=== PATIENT | male | born 1980 | race Caucasian/White ===

== ENCOUNTER → 2018-06-10 08:58 | Outpatient (CLI) | payer OTHER, SELFPAY ==
[2018-06-10 10:12] LABS: Anion Gap 7 (5-15); BUN 14 mg/dL (7-18); BUN/Creat Ratio 12.4 RATIO (10-20); Calcium,Total 8.8 mg/dL (8.5-10.1); Chloride 106 mmol/L (98-107); Cholesterol 252 mg/dL (200); Creatinine, Serum 1.13 mg/dL (0.70-1.30); EST Glomerular Filtration Rate 77 mL/min (>60); Est Glom Filt Rate - Afr Amer 93 mL/min (>60); Glucose 95 mg/dL (74-106); High Density Lipoprotein 38 mg/dL; Potassium 4.4 mmol/L (3.5-5.1); Sodium Level 144 mmol/L (136-145); Triglycerides 187 mg/dL; Very Low Density Lipoprotein 37 mg/dL (5-40)
== END ==
PROVIDERS: Family Provider Internal Medicine; PCP Internal Medicine; Referring Provider Nurse Practitioner Family; Visit Provider Nurse Practitioner Family
DX: F32.9 Major depressive disorder, single episode, unspecified (principal); E78.5 Hyperlipidemia, unspecified
CPT/HCPCS: 36415; 80048; 80061

== ENCOUNTER 2018-11-13 07:14 | Emergency (ER) | payer OTHER, MEDICAID, SELFPAY ==
[2018-10-15 15:28] VITALS: BMI 28.8
[2018-11-13 07:15] VITALS: BP 143/92; PULSE 77; RESP 16; TEMP 36.2; O2SAT 95; BMI 27.1
--- NOTE | 2018-11-13 07:32 | EKG12_ITS ---
Test Reason : MEDICAL CLEARANCE Blood Pressure : / mmHG Vent. Rate : 071 BPM Atrial Rate : 071 BPM P-R Int : 178 ms QRS Dur : 098 ms QT Int : 372 ms P-R-T Axes : 072 059 046 degrees QTc Int : 404 ms Normal sinus rhythm Normal ECG Confirmed by TIMOTHY LEVI ([id number]), editor news KEILY RICHTER ([id number]) on 11/14/2018 2:23:01 PM Referred By: JIM Confirmed By:TIMOTHY LEVI
--- NOTE | 2018-11-13 07:42 | ED.RN ---
NO OLD EKG
[2018-11-13 08:05] LABS: Absolute Lymphocyte Count 1.41 X10^3/uL (0.83-4.51); Absolute Neutrophil Count 4.1 X10^3/uL (2.0-7.7); Basophil# 0.03 X10^3/uL; Basophil% 0.5 % (0-1); Eosinophil# 0.16 X10^3/uL; Eosinophils% 2.6 % (0-5); Hematocrit 45.1 % (40-54); Hemoglobin 15.7 g/dL (13.0-16.5); Lymphocyte # 1.41 X10^3/ul (4.0); Lymphocyte % 22.9 % (19-41); Mean Corp Hgb Conc 34.8 g/dL (32-36); Mean Corpuscular Hgb 32.5 pg (27.0-32.0); Mean Corpuscular Volume 93.4 fL (80-94); Mean Platelet Vol. 9.3 fl (6.2-12.0); Monocyte# 0.39 X10^3/uL; Monocyte% 6.3 % (0-10); NRBC Flagged by Analyzer 0 % (0-5); Neutrophil # 4.13 X10^3/uL (2.7-7.7); Neutrophil % 67.2 % (47-70); Platelet Count 205 K/mm3 (150-450); RBC Distribution Width CV 11.8 % (11.6-14.6); RBC Distribution Width SD 39.8 fl (35.1-43.9); Red Blood Count 4.83 M/mm3 (4.6-6.2); White Blood Count 6.2 K/mm3 (4.4-11.0)
--- NOTE | 2018-11-13 08:22 | ED.DCSUM_ITS ---
- ER Visit Summary Date of Service: 11/13/18 Chief Complaint: Anxiety and depression History of Present Illness: The patient is a 38 M with a history of anxiety and depression. He reports increasing symptoms for several weeks. He did discontinue his fluoxetine a couple months ago because he said that it was not doing anything. He restarted it about 3 weeks ago. Nothing specific seem to make his symptoms worse. He says his finances are tight. He has obsessive thinking about everything. He cannot focus, reports low energy, decreased sleep. He also has heart palpitations and vertigo. He has a history of these symptoms. He feels reckless and on the edge. He has no specific plan. He says he has a and kids to live for. Nothing happened with them and he has no plans to hurt himself for them, but he does not feel safe at home. Although he has no specific suicidal plan, he does not know what he will do. Physical Examination: Afebrile and vital signs unremarkable. Patient has depressed mood. Head and neck unremarkable. Heart regular. Lungs clear. Skin normal. Test Results: EKG showed sinus rhythm at a rate of 71. Laboratory studies, tox screen, and alcohol pending. Emergency Department Course and Treatment: Patient has severe depression and anxiety symptoms. He is not actively suicidal, but he also says that he does not feel safe and does not know what he will do. He will not tell me that he is safe or not going to hurt himself. He makes poor eye contact. I am concerned for his safety, and will place him in suicide precautions. Will obtain clearance and have a crisis evaluation performed.. CBC, CMP, troponin, TSH, tox screen negative. Alcohol level pending. Patient is stable. Crisis is evaluating the patient for further care. Alcohol negative. Crisis agrees that the patient would benefit from hospitalization. I completed a pink slip. Treatment Plan: As above Disposition: Pending Impression: 1. Suicidal ideation This note was generated with [employer]ation software. It may contain incorrect words, spelling, and punctuation that were not noted in review of the chart prior to signing ED Disposition - Plan for ED Patient: Referrals: Dawson Mayo MD [Primary Care Provider] -
[2018-11-13 08:23] LABS: BUN 12 mg/dL (7-18); BUN/Creat Ratio 10.9 RATIO (10-20); EST Glomerular Filtration Rate 79 mL/min (>60); Est Glom Filt Rate - Afr Amer 96 mL/min (>60); Estimated Creatinine Clearance 99.94 ml/min; Globulin 3.3 g/dL (2.2-4.2); Glucose 100 mg/dL (74-106); Protein, Total 7.3 g/dL (6.4-8.2)
[2018-11-13 08:24] LABS: ALB/GLOB Ratio 1.2 RATIO (0.9-2.4); AST(SGOT) 19 U/L (15-37); Alanine Aminotransfer ALT/SGPT 45 U/L (16-61); Alkaline Phosphatase 90 U/L (45-117); Anion Gap 6 (5-15); Calcium,Total 9.1 mg/dL (8.5-10.1); Chloride 107 mmol/L (98-107); Sodium Level 143 mmol/L (136-145); Thyroid Stim Hormone (TSH) 2.26 uIU/mL (0.358-3.74)
--- NOTE | 2018-11-13 08:49 | ED.RN ---
ESA WITH CRISIS I WILL BE THER IN A LITTLE BIT
[2018-11-13 09:15] LABS: Amphetamine Urine VISTA NEGATIVE (<1000 ng/mL); Barbiturate Urine VISTA NEGATIVE (< 200 ng/mL); Benzodiazepine Urine VISTA NEGATIVE (< 200 ng/mL); Cocaine Urine VISTA NEGATIVE (< 300 ng/mL); Ecstacy Urine VISTA NEGATIVE (< 500 ng/mL); Methadone Urine VISTA NEGATIVE (< 300 ng/mL); PCP Urine VISTA NEGATIVE (< 25 ng/mL); THC Urine VISTA NEGATIVE (< 50 ng/mL); Vista UDS pH Range 7
[2018-11-13 09:27] LABS: Alcohol, Blood (Medical)-Serum < 3.0 mg/dL
[2018-11-13 10:42] VITALS: BP 129/74; PULSE 62; RESP 15; O2SAT 98
--- NOTE | 2018-11-13 11:22 | ED.RN ---
JACKIE WITH CRISIS LEFT THE HOSPITAL AT 1125, WE WILL BE IN TOUCH WITH YOU
--- NOTE | 2018-11-13 11:42 | NURSING ---
[facility] CALLED @ 0831 FOR TRANSPORT. [facility] SAID THEY WOULD BE HERE IN 45 MIN, [facility] IS COMING FROM [place].
[2018-11-13 12:13] VITALS: BP 129/74; PULSE 62; RESP 15; TEMP 36.2; O2SAT 98
[2018-11-13 12:15] VITALS: BP 129/74; PULSE 62; RESP 15; TEMP 36.2; O2SAT 98
== END 2018-11-13 12:38 ==
PROVIDERS: Emergency Provider Emergency Medicine; Family Provider Internal Medicine; PCP Internal Medicine
DX: R45.851 Suicidal ideations (principal); F32.9 Major depressive disorder, single episode, unspecified; F41.9 Anxiety disorder, unspecified; F31.9 Bipolar disorder, unspecified
CPT/HCPCS: 80053; 80307; 80320; 84443; 84484; 85025; 93005; 99283; A4216; G0480

== ENCOUNTER → 2018-12-09 11:37 | Outpatient (CLI) | payer OTHER, MEDICAID, SELFPAY ==
[2018-11-29 07:36] VITALS: BMI 27.1
== END ==
PROVIDERS: Family Provider Internal Medicine; PCP Internal Medicine; Referring Provider Nurse Practitioner Family; Visit Provider Nurse Practitioner Family
DX: G47.10 Hypersomnia, unspecified (principal)
CPT/HCPCS: 95806

== ENCOUNTER → 2019-05-13 15:04 | Outpatient (CLI) | payer MEDICAID, SELFPAY ==
[2019-05-13 13:51] VITALS: BMI 27.1
--- NOTE | 2019-05-13 15:10 | RAD_ITS ---
STUDY: X-RAY - LEFT KNEE REASON FOR EXAM: Male, 39 years old. patient was bending down and twisted and felt a pop in his knee TECHNIQUE: 3 view(s) of the knee. COMPARISON: None. FINDINGS: Normal visualized distal femur. Normal visualized proximal tibia and fibula. Normal proximal tibiofibular articulation. Normal medial femorotibial compartment. Normal lateral femorotibial compartment. Normal patellofemoral articulation. The soft tissue structures are unremarkable. RAD/Knee 3 Views IMPRESSION: Normal x-ray examination of the knee. Electronically Signed: Heraclio William, at 9:19 EST Tel , Service support ,
== END ==
PROVIDERS: PCP Internal Medicine; Referring Provider Internal Medicine; Visit Provider Internal Medicine
DX: M25.562 Pain in left knee (principal)
CPT/HCPCS: 73562

== ENCOUNTER → 2019-08-08 17:35 | Outpatient (CLI) | payer MEDICAID, SELFPAY ==
[2019-06-04 09:36] VITALS: BMI 29.4
--- NOTE | 2019-08-08 17:36 | MRI_ITS ---
HISTORY: Medial LEFT knee pain, meniscal tear EXAMINATION: MR Knee W/O Contrast TECHNIQUE: Multiplanar and multisequence MR images of the left knee. IV Contrast dosage and agent: None. COMPARISON: Left knee x-ray 05/13/2019 FINDINGS: BONE: No fracture, avascular necrosis, or suspicious lesion. Small benign-appearing insertion related cyst of the proximal tibia beneath the ACL insertion. This is not believed significant. JOINT: Small to moderate suprapatellar effusion. No popliteal cyst formation or loose body. MENISCI: Medial and lateral menisci show normal shape and signal intensity. No meniscal tear. Cruciate and collateral ligaments: Intact. Normal signal. CARTILAGE: Intact. No chondromalacia, osteochondral defect, or loose body Tendons: Normal quadriceps and patellar tendons. MRI/Lower Ext Joint Only (Routine) IMPRESSION: 1. Small to moderate suprapatellar effusion, left knee, compatible with nonspecific synovitis. Otherwise negative exam. 2. Intact menisci and ligaments. 3. No chondromalacia or additional significant abnormality. at 050 Reported and signed by: Herman Spencer MD Electronically Signed: Herman Spencer, at 5:08 EDT Tel , Service support ,
== END ==
PROVIDERS: PCP Internal Medicine; Referring Provider Orthopaedic Surgery; Visit Provider Orthopaedic Surgery
DX: S83.242A Other tear of medial meniscus, current injury, left knee, initial encounter (principal)
CPT/HCPCS: 73721

== ENCOUNTER → 2019-12-05 15:24 | Outpatient (CLI) | payer MEDICAID, SELFPAY ==
[2019-12-05 14:53] VITALS: BMI 29.4
[2019-12-05 16:57] LABS: Absolute Neutrophil Count 6.4 X10^3/uL (2.0-7.7); Basophil# 0.04 X10^3/uL; Basophil% 0.5 % (0-1); Eosinophil# 0.23 X10^3/uL; Eosinophils% 2.8 % (0-5); Hematocrit 42.9 % (40-54); Hemoglobin 14.5 g/dL (13.0-16.5); Lymphocyte % 13.3 % (19-41); Mean Corp Hgb Conc 33.8 g/dL (32-36); Mean Corpuscular Hgb 32.2 pg (27.0-32.0); Mean Corpuscular Volume 95.1 fL (80-94); Mean Platelet Vol. 9.8 fl (6.2-12.0); Monocyte# 0.46 X10^3/uL; Monocyte% 5.5 % (0-10); NRBC Flagged by Analyzer 0 % (0-5); Neutrophil # 6.41 X10^3/uL (2.7-7.7); Neutrophil % 77.2 % (47-70); Platelet Count 269 K/mm3 (150-450); RBC Distribution Width CV 12.2 % (11.6-14.6); RBC Distribution Width SD 42.5 fl (35.1-43.9); Red Blood Count 4.51 M/mm3 (4.6-6.2); White Blood Count 8.3 K/mm3 (4.4-11.0)
[2019-12-05 17:39] LABS: ALB/GLOB Ratio 0.9 RATIO (0.9-2.4); AST(SGOT) 34 U/L (15-37); Alanine Aminotransfer ALT/SGPT 72 U/L (16-61); Albumin, Serum 3.5 g/dL (3.2-5.0); Alkaline Phosphatase 129 U/L (45-117); Anion Gap 7 (5-15); BUN 19 mg/dL (7-18); BUN/Creat Ratio 16.4 RATIO (10-20); Calcium,Total 8.5 mg/dL (8.5-10.1); Chloride 104 mmol/L (98-107); Creatinine, Serum 1.16 mg/dL (0.70-1.30); EST Glomerular Filtration Rate 74 mL/min (>60); Est Glom Filt Rate - Afr Amer 90 mL/min (>60); Globulin 3.8 g/dL (2.2-4.2); Glucose 96 mg/dL (74-106); Potassium 3.8 mmol/L (3.5-5.1); Protein, Total 7.3 g/dL (6.4-8.2); Sodium Level 141 mmol/L (136-145)
[2019-12-06 07:05] LABS: SARS-COV-2 TOTAL ABS Nonreactive (Nonreactive)
== END ==
PROVIDERS: PCP Internal Medicine; Visit Provider Internal Medicine
DX: R06.02 Shortness of breath (principal); R53.81 Other malaise; R53.83 Other fatigue
CPT/HCPCS: 36415; 80053; 85025; 86769

== ENCOUNTER → 2019-12-10 08:45 | Outpatient (CLI) | payer OTHER, MEDICAID, SELFPAY ==
[2019-12-05 14:53] VITALS: BMI 29.4
--- NOTE | 2019-12-10 08:47 | EKG12_ITS ---
Test Reason : ROUTINE Blood Pressure : / mmHG Vent. Rate : 080 BPM Atrial Rate : 080 BPM P-R Int : 144 ms QRS Dur : 096 ms QT Int : 360 ms P-R-T Axes : 051 065 040 degrees QTc Int : 415 ms Normal sinus rhythm with sinus arrhythmia Normal ECG Confirmed by DARIO FONG, CHERYL ([id number]), senior technical editor KEILY RICHTER ([id number]) on 12/12/2019 1:29:33 PM Referred By: Dawson Mayo Confirmed By:PATRICK BISHOP MD
--- NOTE | 2019-12-10 08:49 | RAD_ITS ---
STUDY: X-RAY CHEST REASON FOR EXAM: Male, 39 years old. SOB x 3 weeks, pt c/o low pulse TECHNIQUE: PA and lateral views of the chest. COMPARISON: None. FINDINGS: The lungs are clear and expanded. There is no demonstrated pleural abnormality. Normal size heart. Normal mediastinum and allegra. Normal visualized pulmonary arteries. Normal visualized aortic arch and descending thoracic aorta. Normal visualized thoracic spine. Normal visualized ribs, clavicles, and shoulders. There is no demonstrated abnormality of the visualized soft tissue structures of the upper abdomen. RAD/Chest PA and Lateral IMPRESSION: Normal x-ray examination of the chest. Electronically Signed: Justo Brooks, at 15:26 EDT , Service support ,
== END ==
PROVIDERS: PCP Internal Medicine; Referring Provider Internal Medicine; Visit Provider Internal Medicine
DX: R06.02 Shortness of breath (principal)
CPT/HCPCS: 71046; 93005

== ENCOUNTER 2020-01-10 11:40 | Observation (INO) | payer MEDICAID, SELFPAY ==
[2019-12-28 10:02] VITALS: BMI 29.4
[2020-01-10] VITALS (13 sets, daily range): BP systolic 108–145; BP diastolic 64–74; PULSE 71–92; RESP 18–30; TEMP 35.9–37.3; O2SAT 89–98; BMI 28.5; BMI 28.3
--- NOTE | 2020-01-10 12:14 | RAD_ITS ---
STUDY: X-RAY CHEST REASON FOR EXAM: Male, 39 years old. SOB SINCE OCTOBER. GETTING WORSE. TECHNIQUE: Frontal view of the chest COMPARISON: 10 December 2019 FINDINGS: There are new bilateral basilar ill-defined opacities, right greater than left. Inspiratory volumes are low. There is no pneumothorax, pulmonary edema, cardiomegaly or pleural effusions. Skeleton is intact. One month ago the lungs were normal. RAD/Chest 1 View (Portable) IMPRESSION: Right lower lobe opacity, possible left lower lobe opacity. In the acute setting pneumonia is most probable given the lungs were normal one month ago. Electronically Signed: Heraclio William, at 13:44 EDT Tel , Service support ,
--- NOTE | 2020-01-10 12:14 | EKG12_ITS ---
Test Reason : Blood Pressure : / mmHG Vent. Rate : 088 BPM Atrial Rate : 088 BPM P-R Int : 160 ms QRS Dur : 092 ms QT Int : 356 ms P-R-T Axes : 038 072 048 degrees QTc Int : 430 ms Normal sinus rhythm Normal ECG Confirmed by WU FONG, ALLISON ([id number]), dictionary editor ATUL BRITT ([id number]) on 01/13/2020 12:34:45 PM Referred By: RAIZA Confirmed By:ALLISON WASHBURN MD
--- NOTE | 2020-01-10 12:17 | ED.VISSUMM ---
- ER Visit Summary Date of Service: 01/10/20 Chief Complaint: [Shortness of breath] History of Present Illness: The patient is a 39 M [presents to the emergency department complaint of shortness of breath that has been progressive for the last 2 months. Patient states that he has been seen by his primary care physician and in December he had antibody testing for COVID which was negative. He is never had COVID testing otherwise. Patient has minimal cough that is nonproductive. He describes intermittent chest discomfort that is mild. He complains of exertional dyspnea. He denies recent travel or surgery. No history of PE or DVT. Patient has history of slightly elevated cholesterol but no other significant medical history. Patient states that he has been to urgent care for this and no etiology has been found. Patient states that his pulse ox at times had dropped to as low as 92%. On arrival to our emergency department he was down to 87% on room air.] Physical Examination: [HEENT-PERRLA, EOMI. Cranial nerves II through XII grossly intact. TMs clear. Mucous membranes moist. No adenopathy. Cardiovascular-regular rate and rhythm without murmur or ectopy Lungs-good aeration bilaterally. Patient has some occasional coarse rhonchi noted and faint expiratory wheezes. No accessory muscle use or retractions. No conversational dyspnea. Abdomen-normoactive bowel sounds, soft, nontender, no rebound or rigidity, no peritoneal signs. Extremities-intact ?4, normal range of motion, normal pulses, atraumatic. No leg edema noted. Negative Homans sign. No ropes or cords palpated.] Test Results: [EKG obtained on arrival showed a sinus rhythm with a ventricular rate of 88 bpm. CBC with external count 11.3, hemoglobin 14.9, hematocrit 45, placed 217. Chemistries unremarkable. Troponin less than 0.015. BNP was 8.7. D-dimer was 0.35. Chest x-ray obtained showed a right lower lobe opacity. CTA of the chest was technically difficult but no evidence of central PE noted. Patient was noted to have bilateral groundglass opacities consistent with a pneumonitis and it was recommended patient have pulmonology consultation.] COVID-19 test ordered and pending Emergency Department Course and Treatment: [IV line established on arrival. Blood cultures ordered. Patient was started on Levaquin 750 mg IV. Patient was started on 2 L nasal cannula O2 for his hypoxemia with room O2 of 87% on room air.] Treatment Plan: [Admit] Disposition: [Admit] Impression: [Pneumonia Hypoxemia] This note was generated with [email or web address] dictation software. It may contain incorrect words, spelling, and punctuation that were not noted in review of the chart prior to signing ED Disposition - Plan for ED Patient: Referrals: Dawson Mayo MD [Primary Care Provider] -
[2020-01-10] MEDS: 0.9% Normal Saline 1,000 ML 150 ML IV (12:42)
[2020-01-10 12:59] LABS: Absolute Lymphocyte Count 0.82 X10^3/uL (0.83-4.51); Absolute Neutrophil Count 9.8 X10^3/uL (2.0-7.7); Basophil# 0.03 X10^3/uL; Basophil% 0.3 % (0-1); Eosinophils% 0.9 % (0-5); Hematocrit 45.3 % (40-54); Hemoglobin 14.9 g/dL (13.0-16.5); Lymphocyte # 0.82 X10^3/ul (4.0); Lymphocyte % 7.3 % (19-41); Mean Corp Hgb Conc 32.9 g/dL (32-36); Mean Corpuscular Hgb 31.8 pg (27.0-32.0); Mean Corpuscular Volume 96.6 fL (80-94); Mean Platelet Vol. 9.5 fl (6.2-12.0); Monocyte# 0.48 X10^3/uL; Monocyte% 4.3 % (0-10); NRBC Flagged by Analyzer 0 % (0-5); Neutrophil # 9.81 X10^3/uL (2.7-7.7); Neutrophil % 86.8 % (47-70); Platelet Count 217 K/mm3 (150-450); RBC Distribution Width CV 12.8 % (11.6-14.6); RBC Distribution Width SD 45.1 fl (35.1-43.9); Red Blood Count 4.69 M/mm3 (4.6-6.2); White Blood Count 11.3 K/mm3 (4.4-11.0)
[2020-01-10 13:15] LABS: D-Dimer Quantitative (DVT/PE) 0.35 FEU/ug/m (0.27-0.49)
[2020-01-10 13:16] LABS: Anion Gap 3 (5-15); BUN 15 mg/dL (7-18); BUN/Creat Ratio 12.1 RATIO (10-20); Calcium,Total 9.5 mg/dL (8.5-10.1); Chloride 107 mmol/L (98-107); Creatinine, Serum 1.24 mg/dL (0.70-1.30); EST Glomerular Filtration Rate 69 mL/min (>60); Est Glom Filt Rate - Afr Amer 83 mL/min (>60); Estimated Creatinine Clearance 87.79 ml/min; Glucose 100 mg/dL (74-106); Potassium 4.4 mmol/L (3.5-5.1); Sodium Level 139 mmol/L (136-145)
[2020-01-10 13:21] LABS: BNP,B-Type NATRIURETIC PEPTIDE 8.7 pg/mL (0-100)
[2020-01-10 13:22] LABS: Lactic Acid 0.6 mmol/L (0.4-1.9)
--- NOTE | 2020-01-10 13:24 | CT_ITS ---
STUDY: CTA CHEST REASON FOR EXAM: Male, 39 years old. Hypoxia and dyspnea shortness of breath RADIATION DOSAGE (If Supplied By Facility): CTDIvol = ( 18.33 ) mGy, DLP = ( 474.13 ) mGycm TECHNIQUE: The examination was performed with the intravenous administration of IV 100mL Isovue-370. Post-processing of the angiographic images was performed, with multiplanar reformation and 3D reconstruction. Individualized dose optimization techniques were used for this CT. COMPARISON: None. FINDINGS: Examination is technically suboptimal, in part due to motion artifact. Attenuation the pulmonary artery is suboptimally low, making visualization of lobar and segmental branches difficult. Some diagnostic information is available. Assessment of parenchyma is suboptimal. Diagnostic information is available. There is no large or central pulmonary embolism. There is no pulmonary arterial hypertension or right ventricular strain. Cardiac chambers are normal in size and shape. Aorta is normal. Pericardium is normal. There is diffuse bilateral pulmonary disease with predominantly groundglass micronodular appearance in the upper to midlung zones and more lobar groundglass opacities in the lung bases. Central airways are patent. Pleural surfaces are intact. Mediastinal contents are normal. CT/CTA Chest W/WO Contrast IMPRESSION: 1. Technical limitations exam. 2. No large/central pulmonary embolism. Refer to ultrasonography of the lower extremity venous system for further risk stratification of a patient at risk for venous thrombi embolic disease. 3. Diffuse lung disease. Hypersensitivity pneumonitis is most probable. Pulmonary referral is advised. Further imaging will depend on pulmonate consultation results. Electronically Signed: Heraclio William, at 15:13 EDT Tel , Service support ,
[2020-01-10] MEDS: levoFLOXacin IV 750 MG/150 ML BAG 100 MG IV (15:09)
[2020-01-10] MEDS: Acetaminophen 325 MG Tablet 650 MG PO (16:27)
--- NOTE | 2020-01-10 16:56 | PCM.HP.STD ---
Problem List (1) Overweight (BMI 25.0-29.9) Status: Chronic (2) ROSE MARIE (obstructive sleep apnea) Status: Chronic Comment: AHI 24 (3) Depression Status: Chronic (4) History of vasectomy Status: Chronic Comment: 10/17 (5) Daytime somnolence Status: Chronic (6) Bipolar disorder Status: Chronic (7) Vertigo Status: Resolved (8) Bloody ejaculation Status: Resolved (9) Hx of appendicitis Status: Resolved History of Present Illness Date of Admission: 01/10/20 Chief Complaint: Shortness of breath. The patient is a 39 year old M who presents to the emergency due to shortness of breath. Shortness of breath has been ongoing since the beginning of October. Patient reports he has been following with his primary care provider and had a chest x-ray, EKG and COVID antibody test in the beginning of December, all of which was unremarkable. Patient reports mild cough associated with deep breathing. Denies productive cough. Denies fever. Reports mild chills this morning. Denies nausea, vomiting. States shortness of breath is worse with activity. Denies history of asthma. No smoking history. 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 He has a history of obstructive sleep apnea, depression/anxiety/bipolar. Past Medical History Past Medical History (Chronic Problems): Chronic Problems (Last Updated 12/28/19 @ 10:01 by Dionne Saeed) Overweight (BMI 25.0-29.9) (Chronic) ROSE MARIE (obstructive sleep apnea) (Chronic) AHI 24 Depression (Chronic) History of vasectomy (Chronic) 10/17 Daytime somnolence (Chronic) Bipolar disorder (Chronic) Medical History: Medical History (Last Updated 12/28/19 @ 10:01 by Dionne Saeed) Depression (Chronic) F32.9 Daytime somnolence (Chronic) R40.0 Bipolar disorder (Chronic) F31.9 Vertigo (Acute) R42 Depression (Chronic) F32.9 Bloody ejaculation (Chronic) R36.1 Hx of appendicitis (Chronic) Z87.19 Knee pain M25.569 Anxiety F41.9 Hyperlipidemia E78.5 Allergies No Known Allergies Allergy (Verified 01/10/20 11:41) Home Medications: Ambulatory Orders Medication Instructions Recorded fluoxetine 60 mg tablet 60 mg PO DAILY #90 tab 09/04/20 gabapentin 400 mg capsule 400 mg PO TID PRN 12/05/19 albuterol sulfate 90 mcg/actuation 1 - 2 puff INHALATION Q6H PRN #6.7 12/28/19 aerosol inhaler g Surgical History: Surgical History (Last Reviewed 01/10/20 @ 17:03 by Evy Jones NP, SIDE PANEL PADDER-C) History of vasectomy (Resolved) Z98.52 7/ History of appendectomy Z90.49 Surgical History: - - Appendectomy, vasectomy, right knee surgery Psychiatric History: Anxiety, Bipolar, Depression Lives: Spouse/ Significant Other Smoking Status: Never smoker Alcohol: None Drugs: None - *Family History Maternal Family History: Family History (Last Reviewed 01/10/20 @ 17:05 by Evy Jones NP, SIDE PANEL PADDER-C) Mother Hypertension Hyperlipidemia Anxiety Father Diabetes ROSE MARIE (obstructive sleep apnea) Sister Hyperlipidemia Grandmother Heart disease Myocardial infarction Grandfather Heart disease Myocardial infarction History Items: High Cholesterol, Hypertension, - - Anxiety Paternal Family History: Family History (Last Reviewed 01/10/20 @ 17:05 by Evy Jones NP, SIDE PANEL PADDER-C) Mother Hypertension Hyperlipidemia Anxiety Father Diabetes ROSE MARIE (obstructive sleep apnea) Sister Hyperlipidemia Grandmother Heart disease Myocardial infarction Grandfather Heart disease Myocardial infarction History Items: Diabetes, - - ROSE MARIE Review of Systems Constitutional: Reports: Chills, Malaise. Denies: Fever HEENT: Denies: Head Aches, Sinus Congestion, Sinus Drainage Cardiovascular: Denies: Chest Pain, Edema, Light Headedness, Palpitations, Syncope Respiratory: Reports: Cough, Shortness of Breath. Denies: Sputum production Gastrointestinal: Denies: Abdominal Pain, Nausea, Vomiting Genitourinary: Denies: Dysuria Musculoskeletal: Denies: Joint Pain, Joint Tenderness Skin: Denies: Rash, Wounds Neurological: Denies: Numbness, Tingling, Focal weakness Psychiatric: Reports: Anxiety, Depression Hematologic/ Lymphatic: Denies: Easy Bruising, Easy Bleeding VTE Information - Inpt Only VTE Present on Admission: No VTE Mechan Device Prophylaxis: None VTE Pharm Prophylaxis ordered?: No Reason prophylaxis not ordered:: Treatment Not Indicated - Physical Exam Vitals/I&O's: Vital Signs Temp Pulse Resp BP Pulse Ox 99.1 F 88 26 H 138/73 H 92 01/10/20 15:15 01/10/20 15:15 01/10/20 15:15 01/10/20 15:15 01/10/20 15:15 Oxygen Flow Rate (L/min) 2 Oxygen Delivery Method Nasal Cannula Weight: 210 lb Body Mass Index (BMI) 28.5 Intake and Output for Last 24 Hours 01/08/20 01/09/20 01/10/20 23:59 23:59 23:59 Intake Total 517.5 / 517.5 Balance 517.5 / 517.5 General: Alert, Oriented x3, Cooperative HEENT: Atraumatic, PERRLA, EOMI, Normocephalic Oral: - - Conjunctival injection bilaterally, patient reports chronic Neck: Supple, No JVD, Negative Carotid Bruits Lungs: Diminished, - - Scattered crackles Cardiovascular: Regular rate, No murmurs Abdomen: Bowel Sounds Present, Soft, Non Tender Extremities: No clubbing, No cyanosis, No edema, Capillary Refill Less than 3 Seconds Skin: No rashes, No breakdown Musculoskeletal: No Tenderness to Palpation of Joints or Extremities Neurological: Cranial nerves II-XII grossly intact, Neuro grossly intact Psych/Mental Status: Normal Affect, Appropriate Laboratory Results 01/10/20 12:30: WBC 11.3 H, RBC 4.69, Hgb 14.9, Hct 45.3, MCV 96.6 H, MCH 31.8, MCHC 32.9, RDW Std Deviation 45.1 H, RDW Coeff of Deepti 12.8, Plt Count 217, MPV 9.5, Immature Gran % (Auto) 0.400, Neut % (Auto) 86.8 H, Lymph % (Auto) 7.3 L, Harnett % (Auto) 4.3, Eos % (Auto) 0.9, Baso % (Auto) 0.3, Absolute Neuts (auto) 9.8 H, Absolute Lymphs (auto) 0.82 L, Nucleated RBC % 0 01/10/20 12:30: D-Dimer Quant (PE/DVT) 0.35 01/10/20 12:30: Sodium 139, Potassium 4.4, Chloride 107, Carbon Dioxide 29.0, Anion Gap 3 L, BUN 15, Creatinine 1.24, Estim Creat Clear Calc 87.79, Est GFR (MDRD) Af Amer 83, Est GFR (MDRD) Non-Af 69, BUN/Creatinine Ratio 12.1, Glucose 100, Calcium 9.5, Troponin I < 0.015 01/10/20 12:30: Lactic Acid 0.6 01/10/20 12:30: B-Natriuretic Peptide 8.7 01/10/20 13:30: COVID-19 (VICKEY) Pending Current Medications Sodium Chloride () 1,000 mls @ 150 mls/hr IV .Q6H40M ONE Stop: 01/10/20 18:53 Last Infusion: 01/10/20 16:24 Dose: 150 mls/hr Documented by: Assessment/Plan All Active Problems (Last Updated 12/28/19 @ 10:01 by Dionne Saeed) Bloody ejaculation (Resolved) Hx of appendicitis (Resolved) Vertigo (Resolved) 1. Acute hypoxia secondary to right lower lobe pneumonia and pneumonitis-unclear etiology of pneumonitis. COVID negative. Obtain respiratory panel. CT of chest negative for PE. Shows diffuse lung disease with hypersensitivity pneumonitis. Consult pulmonary medicine. Continue supplement oxygen to maintain O2 at or above 90%. IV Solu-Medrol. Albuterol DuoNeb aerosols. Continue Levaquin. 2. ROSE MARIE- on CPAP. 3. Depression/anxiety/bipolar-on fluoxetine and as needed gabapentin. DVT prophylaxis-not indicated, low risk This patient was seen by CHELSEA Calderon under the supervision of Dr. Gonzalez.
[2020-01-10 17:03] LABS: Probe Check PASS; Specimen Processing Control PASS
[2020-01-10] MEDS: Albuterol 2.5 MG/3 ML VIAL.NEB. INHALATION (19:31)
[2020-01-10] MEDS: 0.9% Saline Lock 10 ML Syringe IV (21:42)
[2020-01-11] VITALS (9 sets, daily range): BP systolic 120–130; BP diastolic 67–72; PULSE 71–90; RESP 18–20; TEMP 36.6–37.1; O2SAT 85–95
[2020-01-11] MEDS: levoFLOXacin 750 MG Tablet PO (05:35)
[2020-01-11] MEDS: 0.9% Saline Lock 10 ML Syringe IV (05:35)
--- NOTE | 2020-01-11 05:55 | RAD_ITS ---
STUDY: X-RAY CHEST REASON FOR EXAM: Male, 39 years old. PNEUMONIA TECHNIQUE: PA and lateral views of the chest. COMPARISON: 01/10/2020 FINDINGS: Persistent but decreased asymmetric reticulation in the right lower lobe and right middle lobe, since chest x-ray yesterday. There is no demonstrated pleural abnormality. Normal size heart. Normal mediastinum and allegra. Normal visualized pulmonary arteries. Normal visualized aortic arch and descending thoracic aorta. Normal visualized thoracic spine. Normal visualized ribs, clavicles, and shoulders. There is no demonstrated abnormality of the visualized soft tissue structures of the upper abdomen. RAD/Chest PA and Lateral IMPRESSION: Mild favorable change. Decreasing right basilar reticular opacity. Electronically Signed: Erickson Flores MD (Brooks) at 15:02 EDT , Service support ,
[2020-01-11] MEDS: Albuterol 2.5 MG/3 ML VIAL.NEB. INHALATION (07:00)
--- NOTE | 2020-01-11 07:22 | CON.PCM_ITS ---
Reason for Consult Date of Consultation: 01/11/20 Reason for Consultation: Hypoxia, pneumonitis History of Present Illness: The patient is a 39-year-old male, with a history as outlined below, who presented to the emergency department on January 09 with complaints of shortness of breath, progressive in nature over the last 2 months. The patient reported that in October he began to notice that he was becoming more short of breath with physical exertion. The patient is a lifelong non-smoker without significant secondhand smoke exposure. 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 The patient denies any significant occupational/environmental exposures. He denies any upper respiratory symptoms including rhinorrhea, nasal congestion or postnasal drip. He does currently have 1 dog as a pet in his home environment. He denies any recent bird exposures. The patient was in a hot tub back in October on one occasion. He denies any joint or muscle aches. He has been tested for coronavirus on several occasions now and also had antibody testing completed in December which was negative. He denies any recent medication changes. On presentation to the emergency department, the patient was noted to be afebrile and hemodynamically stable. He was initially documented to be saturating 89 to 90% on room air. Laboratory evaluation revealed a mildly elevated white blood cell count. D-dimer was within normal limits. Chemistry profile was unremarkable. Troponin and BNP were negative. Coronavirus PCR was negative. CTA chest was obtained and showed no evidence for PE. However, there was evidence of bilateral groundglass changes. The patient received supplemental IV fluids and was placed on antimicrobials. He was subsequently admitted to the medical surgical floor for further management. The patient has been maintained on Levaquin by mouth along with IV steroids 40 mg every 8 hours. Past Medical History Past Medical History (Chronic Problems): Chronic Problems (Last Updated 12/28/19 @ 10:01 by Dionne Saeed) Overweight (BMI 25.0-29.9) (Chronic) ROSE MARIE (obstructive sleep apnea) (Chronic) AHI 24 Depression (Chronic) History of vasectomy (Chronic) 10/17 Daytime somnolence (Chronic) Bipolar disorder (Chronic) Medical History: Medical History (Last Updated 12/28/19 @ 10:01 by Dionne Saeed) Depression (Chronic) F32.9 Daytime somnolence (Chronic) R40.0 Bipolar disorder (Chronic) F31.9 Knee pain M25.569 Anxiety F41.9 Hyperlipidemia E78.5 Bloody ejaculation (Resolved) R36.1 Hx of appendicitis (Resolved) Z87.19 Vertigo (Resolved) R42 Allergies No Known Allergies Allergy (Verified 01/10/20 11:41) Home Medications: Ambulatory Orders Medication Instructions Recorded fluoxetine 60 mg tablet 60 mg PO DAILY #90 tab 12/05/19 gabapentin 400 mg capsule 400 mg PO TID PRN 12/05/19 albuterol sulfate 90 mcg/actuation 1 - 2 puff INHALATION Q6H PRN #6.7 12/28/19 aerosol inhaler g Surgical History: Surgical History (Last Reviewed 01/10/20 @ 17:03 by Evy Jones [employer]ING WORKER, [employer]ING WORKER-C) History of vasectomy (Chronic) Z98.52 7/ History of appendectomy Z90.49 Surgical History: - - Appendectomy, vasectomy, right knee surgery Psychiatric History: Anxiety, Bipolar, Depression Lives: Spouse/ Significant Other Smoking Status: Never smoker Alcohol: None Drugs: None - *Family History Maternal Family History: Family History (Last Reviewed 01/10/20 @ 17:05 by Evy Jones NP, [employer]-C) Mother Hypertension Hyperlipidemia Anxiety Father Diabetes ROSE MARIE (obstructive sleep apnea) Sister Hyperlipidemia Grandmother Heart disease Myocardial infarction Grandfather Heart disease Myocardial infarction History Items: High Cholesterol, Hypertension, - - Anxiety Paternal Family History: Family History (Last Reviewed 01/10/20 @ 17:05 by Evy Jones NP, [employer] WORKER-C) Mother Hypertension Hyperlipidemia Anxiety Father Diabetes ROSE MARIE (obstructive sleep apnea) Sister Hyperlipidemia Grandmother Heart disease Myocardial infarction Grandfather Heart disease Myocardial infarction History Items: Diabetes, - - ROSE MARIE Review of Systems Constitutional: Reports: Malaise, Fatigue. Denies: Chills, Fever Eyes: Denies: Blurred vision, Double vision HEENT: Denies: Head Aches, Sinus Congestion, Sinus Drainage Cardiovascular: Denies: Chest Pain, Palpitations Respiratory: Reports: Cough, Shortness of Breath Gastrointestinal: Denies: Abdominal Pain, Nausea, Vomiting Genitourinary: Denies: Dysuria Musculoskeletal: Denies: Joint Pain, Joint Tenderness Skin: Denies: Rash, Wounds Neurological: Denies: Numbness, Tingling, Focal weakness Psychiatric: Denies: Anxiety, Depression, Homicidal Ideations, Suicidal Ideations Hematologic/ Lymphatic: Denies: Easy Bruising, Easy Bleeding Objective: The patient's most recent lab work, culture data and imaging studies have all been personally reviewed. - Physical Exam Vitals/I&O's: Vital Signs Temp Pulse Resp BP Pulse Ox 98 F 71 20 H 123/67 H 91 01/11/20 05:33 01/11/20 07:17 01/11/20 07:17 01/11/20 05:33 01/11/20 07:17 Oxygen Flow Rate (L/min) 2 Oxygen Delivery Method Nasal Cannula Weight: 208 lb 12.8 oz Body Mass Index (BMI) 28.3 Intake and Output for Last 24 Hours 01/09/20 01/10/20 01/11/20 23:59 23:59 23:59 Intake Total 892.5 / 1392.5 1100 / 1100 Balance 892.5 / 1392.5 1100 / 1100 General: Alert, Oriented x3, Cooperative, No apparent distress HEENT: Atraumatic, PERRLA, Normocephalic Oral: Moist Mucosa, No Gingival or Mucosal Lesions/ Ulcerations Neck: Supple, No Nodes, Trachea Midline Lungs: - - Faint bibasilar rales. Otherwise clear to auscultation bilaterally. Cardiovascular: Regular rate, Regular Rhythm Abdomen: Bowel Sounds Present, Soft, Non Tender Extremities: No clubbing, No cyanosis, No edema Skin: No breakdown Musculoskeletal: No Tenderness to Palpation of Joints or Extremities, No Muscle Wasting Lymphatic: No Cervical, Supraclavicular, or Inguinal Adenopathy Neurological: Cranial nerves II-XII grossly intact, Neuro grossly intact Psych/Mental Status: Alert and oriented to time, place, person, mood and affect Labs (Last 48 Hours) 01/10/20 01/10/20 01/10/20 12:30 12:30 12:30 WBC 11.3 H RBC 4.69 Hgb 14.9 Hct 45.3 MCV 96.6 H MCH 31.8 MCHC 32.9 RDW Std Deviation 45.1 H RDW Coeff of Deepti 12.8 Plt Count 217 MPV 9.5 Immature Gran % (Auto) 0.400 Neut % (Auto) 86.8 H Lymph % (Auto) 7.3 L Amite % (Auto) 4.3 Eos % (Auto) 0.9 Baso % (Auto) 0.3 Absolute Neuts (auto) 9.8 H Absolute Lymphs (auto) 0.82 L Nucleated RBC % 0 D-Dimer Quant (PE/DVT) 0.35 Sodium 139 Potassium 4.4 Chloride 107 Carbon Dioxide 29.0 Anion Gap 3 L BUN 15 Creatinine 1.24 Estim Creat Clear Calc 87.79 Est GFR (MDRD) Af Amer 83 Est GFR (MDRD) Non-Af 69 BUN/Creatinine Ratio 12.1 Glucose 100 Lactic Acid Calcium 9.5 Troponin I < 0.015 B-Natriuretic Peptide COVID-19 (VICKEY) 01/10/20 01/10/20 01/10/20 12:30 12:30 13:30 WBC RBC Hgb Hct MCV MCH MCHC RDW Std Deviation RDW Coeff of Deepti Plt Count MPV Immature Gran % (Auto) Neut % (Auto) Lymph % (Auto) Amite % (Auto) Eos % (Auto) Baso % (Auto) Absolute Neuts (auto) Absolute Lymphs (auto) Nucleated RBC % D-Dimer Quant (PE/DVT) Sodium Potassium Chloride Carbon Dioxide Anion Gap BUN Creatinine Estim Creat Clear Calc Est GFR (MDRD) Af Amer Est GFR (MDRD) Non-Af BUN/Creatinine Ratio Glucose Lactic Acid 0.6 Calcium Troponin I B-Natriuretic Peptide 8.7 COVID-19 (VICKEY) Not Detected Microbiology 01/10/20 19:30 Mucosa - Nasopharyngeal Respiratory Panel (PCR) - Final Clinical Impression(s) from Imaging Studies Chest X-Ray 01/10/20 12:14 IMPRESSION: Right lower lobe opacity, possible left lower lobe opacity. In the acute setting pneumonia is most probable given the lungs were normal one month ago. Electronically Signed: Heraclio William, at 13:44 EDT Tel , Service support , Chest CTA 01/10/20 13:24 IMPRESSION: 1. Technical limitations exam. 2. No large/central pulmonary embolism. Refer to ultrasonography of the lower extremity venous system for further risk stratification of a patient at risk for venous thrombi embolic disease. 3. Diffuse lung disease. Hypersensitivity pneumonitis is most probable. Pulmonary referral is advised. Further imaging will depend on pulmonate consultation results. Electronically Signed: Heraclio William, at 15:13 EDT Tel , Service support , Current Medications Acetaminophen (Tylenol) 650 mg PO Q6H PRN PRN PRN Reason: Pain Score 1-10/Temp > 100.7 F Albuterol Sulfate (Ventolin Aerosols) 2.5 mg INHALATION Q6HWA.RT [facility] Last Admin: 01/11/20 07:00 Dose: 2.5 mg Documented by: Albuterol Sulfate (Ventolin Aerosols) 2.5 mg INHALATION Q2H PRN PRN PRN Reason: DYSPNEA Fluoxetine HCl (Prozac) 60 mg PO DAILY [facility] Levofloxacin (Levaquin Tablet) 750 mg PO DAILY@0600 [facility] Last Admin: 01/11/20 05:35 Dose: 750 mg Documented by: Methylprednisolone (Solu-Medrol) 40 mg IV Q8 [facility] Last Admin: 01/11/20 05:35 Dose: 40 mg Documented by: Ondansetron HCl (Zofran) 4 mg IV Q8H PRN PRN PRN Reason: NAUSEA/VOMITING Sodium Chloride () 10 - 40 ml IV UD PRN PRN Reason: SALINE FLUSH Last Admin: 01/11/20 05:35 Dose: 10 ml Documented by: Assessment/Plan All Active Problems (Last Updated 12/28/19 @ 10:01 by Dionne Saeed) Bloody ejaculation (Resolved) Hx of appendicitis (Resolved) Vertigo (Resolved) RECOMMENDATIONS: 1. Continue Levaquin with plans to complete a 7-day treatment course. 2. Continue prednisone 40 mg daily until follow-up in the pulmonary medicine clinic. 3. Wean supplemental oxygen to maintain saturations at or above 90%. 4. Perform walking oximetry study prior to consideration for discharge home. 5. Check KIMBERLY with reflex, anti-CCP antibodies, rheumatoid factor, ANCA, hypersensitivity pneumonitis panel. 6. Follow-up in the pulmonary medicine clinic within 2 weeks of discharge. IMPRESSIONS: 1. Acute hypoxemic respiratory insufficiency The groundglass changes noted on CT chest are very nonspecific in nature. These could represent an infectious or inflammatory condition, such as hypersensitivity pneumonitis. However, the patient does not endorse a history significant for significant occupational or environmental exposure recently. Other potential etiologies could include an early interstitial lung process versus eosinophilic pneumonia. However, the patient has a normal peripheral eosinophil count. At this time, will obtain baseline lab work including autoimmune work-up, ESR, CRP and hypersensitivity panel. The patient will be continued on supplemental oxygen to maintain saturations at or above 90%. Recommend continuing steroids, with plans to transition the patient to prednisone 40 mg daily at discharge. He should remain on the aforementioned dose of prednisone until follow-up in the pulmonary medicine clinic. This note was generated with [employer] dictation software. It may contain incorrect words, spelling, and punctuation that were not noted in checking the note before signing. Inpatient E&M: 03786 Init Hosp L3
[2020-01-11] MEDS: FLUoxetine 20 MG Capsule 60 MG PO (09:36)
[2020-01-11 10:08] LABS: Erythrocyte Sedimentation Rate 32 mm/hr (0-15)
--- NOTE | 2020-01-11 10:22 | DCINST_ITS ---
You will use the following diet at home:: No restrictions Discharge Activity: Return to Normal Activity Call your doctor if you observe: Fever of 101 or Higher, Shortness of breath, Dizziness, Fainting spells, Chest pain Additional Instructions: Continue supplement oxygen to maintain O2 at or above 90%. Allergies/Adverse Reactions: Allergies No Known Allergies Allergy (Verified 01/10/20 11:41) Medications to take at Discharge fluoxetine 60 mg tablet 60 mg PO DAILY #90 tab 12/05/19 gabapentin 400 mg capsule 400 mg PO TID PRN 12/05/19 albuterol sulfate 90 mcg/actuation aerosol inhaler 1 - 2 puff INHALATION Q6H PRN #6.7 g 12/28/19 Prednisone 40 mg PO DAILY #28 tab 01/11/20 levoFLOXacin tablet [Levaquin tablet] 750 mg PO DAILY@0600 #6 tab 01/11/20 The following prescriptions were given: levoFLOXacin tablet [Levaquin tablet] 750 mg PO DAILY@0600 #6 tab [facility]: [facility] Prednisone 40 mg PO DAILY #28 tab Transmission Status: Pending to [facility] [address] Primary Care Physician: Dawson Mayo MD [Primary Care Provider] - Please follow up with your Primary Care Physician in: 1 Week Test Results: Test results from this visit will be discussed in further detail at your follow- up appointment, if applicable. Please Follow Up With: Miroslava Ospina NP-C When: Call for appt, 1 week Proposed Discharge Date: 01/11/20
--- NOTE | 2020-01-11 10:24 | DS.PCM_ITS ---
<Evy Jones [employer] - Last Filed: 01/11/20 10:48> Discharge Date and Diagnosis Date of Admission: 01/10/20 Date of Discharge: 01/11/20 - Primary Discharge Diagnosis Acute Problems: 1. Acute hypoxic respiratory insufficiency secondary to pneumonia versus pneumonitis of unclear type 2. ROSE MARIE 3. Depression/anxiety/bipolar - Secondary Discharge Diagnosis Chronic Problems: Chronic Problems (Last Updated 12/28/19 @ 10:01 by Dionne Saeed) Overweight (BMI 25.0-29.9) (Chronic) ROSE MARIE (obstructive sleep apnea) (Chronic) AHI 24 Depression (Chronic) History of vasectomy (Chronic) 10/17 Daytime somnolence (Chronic) Bipolar disorder (Chronic) Hospital Course and Treatment Imaging Results: Diagnostic Data Chest CTA 01/10/20 13:24 IMPRESSION: 1. Technical limitations exam. 2. No large/central pulmonary embolism. Refer to ultrasonography of the lower extremity venous system for further risk stratification of a patient at risk for venous thrombi embolic disease. 3. Diffuse lung disease. Hypersensitivity pneumonitis is most probable. Pulmonary referral is advised. Further imaging will depend on pulmonate consultation results. Electronically Signed: Heraclio William, at 15:13 EDT Tel , Service support , Dr. Roger- Pulmonary medicine Operations: None Procedures: None Summary of Care Provided: The patient is a 39 year old M admitted 01/10/2020 due to shortness of breath. 1. Acute hypoxic respiratory insufficiency secondary to right lower lobe pneumonia versus pneumonitis-unclear etiology of pneumonitis. COVID negative. Respiratory panel negative. CT of chest negative for PE. Shows diffuse lung disease with hypersensitivity pneumonitis. Pulmonary medicine consulted during admission. ESR and CRP elevated. Autoimmune labs pending. Continue prednisone 40 mg daily at discharge until follow-up with pulmonary medicine. As needed albuterol aerosol. Continue oral Levaquin to complete course. Patient's oxygen 88% on room air at rest. Oxygen 85% ambulating on room air. Patient will continue continuous supplemental oxygen 3 L nasal cannula to maintain O2 at or above 90%. He is ambulatory in the home. Instructed patient on obtaining pulse oximeter to monitor O2 levels at home. Follow-up with pulmonary medicine in 1 week. 2. ROSE MARIE- on CPAP. 3. Depression/anxiety/bipolar-on fluoxetine and as needed gabapentin. General: Alert, Oriented x3, Cooperative HEENT: Atraumatic, PERRLA, EOMI, Normocephalic Oral: - - Conjunctival injection bilaterally, patient reports chronic Neck: Supple, No JVD, Negative Carotid Bruits Lungs: Diminished, - - Scattered crackles Cardiovascular: Regular rate, No murmurs Abdomen: Bowel Sounds Present, Soft, Non Tender Extremities: No clubbing, No cyanosis, No edema, Capillary Refill Less than 3 Seconds Skin: No rashes, No breakdown Musculoskeletal: No Tenderness to Palpation of Joints or Extremities Neurological: Cranial nerves II-XII grossly intact, Neuro grossly intact Psych/Mental Status: Normal Affect, Appropriate Patient seen and examined prior to discharge. Physical assessment as noted above. Patient is stable for discharge with follow up recommendations as noted above. This patient was seen by CHELSEA Calderon under the supervision of Dr. Damon. - Physical Exam Vitals/I&O's: Vital Signs Temp Pulse Resp BP Pulse Ox 98.6 F 85 18 130/70 H 88 01/11/20 09:31 01/11/20 09:31 01/11/20 09:31 01/11/20 09:31 01/11/20 09:31 Oxygen Flow Rate (L/min) 2 Oxygen Delivery Method Room Air Weight: 208 lb 12.8 oz Body Mass Index (BMI) 28.3 Intake and Output for Last 24 Hours 01/09/20 01/10/20 01/11/20 23:59 23:59 23:59 Intake Total 892.5 / 1392.5 1100 / 1100 Balance 892.5 / 1392.5 1100 / 1100 Microbiology Past 72 Hours 01/10/20 19:30 Mucosa - Nasopharyngeal Respiratory Panel (PCR) - Final Laboratory Results 01/10/20 12:30: WBC 11.3 H, RBC 4.69, Hgb 14.9, Hct 45.3, MCV 96.6 H, MCH 31.8, MCHC 32.9, RDW Std Deviation 45.1 H, RDW Coeff of Deepti 12.8, Plt Count 217, MPV 9.5, Immature Gran % (Auto) 0.400, Neut % (Auto) 86.8 H, Lymph % (Auto) 7.3 L, [place] % (Auto) 4.3, Eos % (Auto) 0.9, Baso % (Auto) 0.3, Absolute Neuts (auto) 9.8 H, Absolute Lymphs (auto) 0.82 L, Nucleated RBC % 0 01/10/20 12:30: D-Dimer Quant (PE/DVT) 0.35 01/10/20 12:30: Sodium 139, Potassium 4.4, Chloride 107, Carbon Dioxide 29.0, Anion Gap 3 L, BUN 15, Creatinine 1.24, Estim Creat Clear Calc 87.79, Est GFR (MDRD) Af Amer 83, Est GFR (MDRD) Non-Af 69, BUN/Creatinine Ratio 12.1, Glucose 100, Calcium 9.5, Troponin I < 0.015 01/10/20 12:30: Lactic Acid 0.6 01/10/20 12:30: B-Natriuretic Peptide 8.7 01/10/20 13:30: COVID-19 (VICKEY) Not Detected 01/11/20 09:15: ESR 32 H 01/11/20 09:15: C-React Prot Ext Range 50.20 H, Rheumatoid Factor 15.0 01/11/20 09:15: Miscellaneous Test Pending 01/11/20 09:15: KIMBERLY Screen Pending, ROSE MARY-1 Antibody Pending, SS-A/Ro IgG Antibody Pending, SS-B/La IgG Antibody Pending, Sm (Quiñonez) Antibody Pending, SEQUINS SLINGER Antibody Pending, Scl-70 Scleroderma Ab Pending, Double Strand DNA Ab Pending, Centromere B Antibody Pending 01/11/20 09:15: Cycl Citrul Peptide IgG Pending, c-ANCA Antibody Pending, p-ANCA Antibody Pending 01/11/20 09:15: IgE Pending Current Medications Acetaminophen (Tylenol) 650 mg PO Q6H PRN PRN PRN Reason: Pain Score 1-10/Temp > 100.7 F Albuterol Sulfate (Ventolin Aerosols) 2.5 mg INHALATION Q6HWA.RT [facility] Last Admin: 01/11/20 07:00 Dose: 2.5 mg Documented by: Albuterol Sulfate (Ventolin Aerosols) 2.5 mg INHALATION Q2H PRN PRN PRN Reason: DYSPNEA Fluoxetine HCl (Prozac) 60 mg PO DAILY [facility] Last Admin: 01/11/20 09:36 Dose: 60 mg Documented by: Levofloxacin (Levaquin Tablet) 750 mg PO DAILY@0600 [facility] Last Admin: 01/11/20 05:35 Dose: 750 mg Documented by: Methylprednisolone (Solu-Medrol) 40 mg IV Q8 [facility] Last Admin: 01/11/20 05:35 Dose: 40 mg Documented by: Ondansetron HCl (Zofran) 4 mg IV Q8H PRN PRN PRN Reason: NAUSEA/VOMITING Sodium Chloride () 10 - 40 ml IV UD PRN PRN Reason: SALINE FLUSH Last Admin: 01/11/20 05:35 Dose: 10 ml Documented by: Discharge Diet: No Restrictions Discharge Activity: Return to Normal Activity Call your doctor if you observe: Fever of 101 or Higher, Shortness of breath, Dizziness, Fainting spells, Chest pain Home Medications: Medications to take at Discharge fluoxetine 60 mg tablet 60 mg PO DAILY #90 tab 12/05/19 gabapentin 400 mg capsule 400 mg PO TID PRN 12/05/19 albuterol sulfate 90 mcg/actuation aerosol inhaler 1 - 2 puff INHALATION Q6H PRN #6.7 g 12/28/19 Prednisone 40 mg PO DAILY #28 tab 01/11/20 levoFLOXacin tablet [Levaquin tablet] 750 mg PO DAILY@0600 #6 tab 01/11/20 Following Prescriptions Were Given to Patient: levoFLOXacin tablet [Levaquin tablet] 750 mg PO DAILY@0600 #6 tab Transmission Status: Received by [address] [place] [address] Prednisone 40 mg PO DAILY #28 tab Transmission Status: Received by JOSE [address] [place] [address] Primary Care Physician: Dawson Mayo MD [Primary Care Provider] - Please follow up with your Primary Care Physician in: 1 Week Please Follow Up With: Miroslava Ospina NP-C When: Call for appt, 1 week Disposition: Home Minutes spent on discharge:: 35 Patient Condition:: Stable Medical Necessity - Tobacco Use Smoking Status: Never smoker Meaningful Use Info Meaningful Use Diagnoses (Choose all that apply): None applicable <Armando Damon - Last Filed: 01/11/20 12:05> Discharge Date and Diagnosis - Secondary Discharge Diagnosis Chronic Problems: Chronic Problems (Last Updated 12/28/19 @ 10:01 by Dionne Saeed) Overweight (BMI 25.0-29.9) (Chronic) ROSE MARIE (obstructive sleep apnea) (Chronic) AHI 24 Depression (Chronic) History of vasectomy (Chronic) 10/17 Daytime somnolence (Chronic) Bipolar disorder (Chronic) Hospital Course and Treatment Imaging Results: 01/11/20 05:55 Chest PA and Lateral [RAD] AM (NON MEDS) Summary of Care Provided: This patient was seen in conjunction with CHELSEA Calderon . I have independently interviewed and examined the patient and reviewed pertinent historical, laboratory, and other data. Please refer to CHELSEA Calderon note for details of this patient's presentation, findings, and recommendations. I have reviewed CHELSEA Calderon note and concur with documented findings. In brief, patient is a 39-year-old gentleman with past medical history significant for depression with anxiety admitted with progressive shortness of breath. Imaging studies obtained on admission demonstrated Diffuse lung disease. Hypersensitivity pneumonitis is most probable admitted to [facility] for further management Hospital course: As documented above - Physical Exam Vitals/I&O's: Vital Signs Temp Pulse Resp BP Pulse Ox 98.6 F 85 18 130/70 H 88 01/11/20 09:31 01/11/20 09:31 01/11/20 09:31 01/11/20 09:31 01/11/20 10:32 Oxygen Flow Rate (L/min) [ 3 AMBULATION with Oxygen] Oxygen Flow Rate (L/min) 2 Oxygen Delivery Method Room Air Weight: 94.71 kg Body Mass Index (BMI) 28.3 Intake and Output for Last 24 Hours 01/09/20 01/10/20 01/11/20 23:59 23:59 23:59 Intake Total 892.5 / 1392.5 1100 / 1100 Balance 892.5 / 1392.5 1100 / 1100 Microbiology Past 72 Hours 01/10/20 19:30 Mucosa - Nasopharyngeal Respiratory Panel (PCR) - Final Laboratory Results 01/10/20 12:30: WBC 11.3 H, RBC 4.69, Hgb 14.9, Hct 45.3, MCV 96.6 H, MCH 31.8, MCHC 32.9, RDW Std Deviation 45.1 H, RDW Coeff of Deepti 12.8, Plt Count 217, MPV 9.5, Immature Gran % (Auto) 0.400, Neut % (Auto) 86.8 H, Lymph % (Auto) 7.3 L, [place] % (Auto) 4.3, Eos % (Auto) 0.9, Baso % (Auto) 0.3, Absolute Neuts (auto) 9.8 H, Absolute Lymphs (auto) 0.82 L, Nucleated RBC % 0 01/10/20 12:30: D-Dimer Quant (PE/DVT) 0.35 01/10/20 12:30: Sodium 139, Potassium 4.4, Chloride 107, Carbon Dioxide 29.0, Anion Gap 3 L, BUN 15, Creatinine 1.24, Estim Creat Clear Calc 87.79, Est GFR (MDRD) Af Amer 83, Est GFR (MDRD) Non-Af 69, BUN/Creatinine Ratio 12.1, Glucose 100, Calcium 9.5, Troponin I < 0.015 01/10/20 12:30: Lactic Acid 0.6 01/10/20 12:30: B-Natriuretic Peptide 8.7 01/10/20 13:30: COVID-19 (VICKEY) Not Detected 01/11/20 09:15: ESR 32 H 01/11/20 09:15: C-React Prot Ext Range 50.20 H, Rheumatoid Factor 15.0 01/11/20 09:15: Miscellaneous Test Pending 01/11/20 09:15: KIMBERLY Screen Pending, ROSE MARY-1 Antibody Pending, SS-A/Ro IgG Antibody Pending, SS-B/La IgG Antibody Pending, Sm (Quiñonez) Antibody Pending, SEQUINS SLINGER Antibody Pending, Scl-70 Scleroderma Ab Pending, Double Strand DNA Ab Pending, Centromere B Antibody Pending 01/11/20 09:15: Cycl Citrul Peptide IgG Pending, c-ANCA Antibody Pending, p-ANCA Antibody Pending 01/11/20 09:15: IgE Pending Current Medications Acetaminophen (Tylenol) 650 mg PO Q6H PRN PRN PRN Reason: Pain Score 1-10/Temp > 100.7 F Albuterol Sulfate (Ventolin Aerosols) 2.5 mg INHALATION Q6HWA.RT [facility] Last Admin: 01/11/20 07:00 Dose: 2.5 mg Documented by: Albuterol Sulfate (Ventolin Aerosols) 2.5 mg INHALATION Q2H PRN PRN PRN Reason: DYSPNEA Fluoxetine HCl (Prozac) 60 mg PO DAILY [facility] Last Admin: 01/11/20 09:36 Dose: 60 mg Documented by: Levofloxacin (Levaquin Tablet) 750 mg PO DAILY@0600 [facility] Last Admin: 01/11/20 05:35 Dose: 750 mg Documented by: Methylprednisolone (Solu-Medrol) 40 mg IV Q8 [facility] Last Admin: 01/11/20 05:35 Dose: 40 mg Documented by: Ondansetron HCl (Zofran) 4 mg IV Q8H PRN PRN PRN Reason: NAUSEA/VOMITING Sodium Chloride () 10 - 40 ml IV UD PRN PRN Reason: SALINE FLUSH Last Admin: 01/11/20 05:35 Dose: 10 ml Documented by: MALU E&M: [id number] Observation care discharge
[2020-01-13 16:04] LABS: ANTINUCLEAR ANTIBODIES DIRECT Negative (Negative)
[2020-01-14 04:09] LABS: Cytoplasmic Ab (C-ANCA) <1:20 titer (Neg:<1:20)
[2020-01-14 04:44] LABS: CCP IgG Antibodies 3 units (0-19); Perinuclear Ab (P-ANCA) <1:20 titer (Neg:<1:20)
[2020-01-15 08:16] LABS: Immunoglobulin E 87 IU/mL (6-495)
== END 2020-01-11 12:34 | disposition home or self-care (01) ==
LOC: ED 12:20 → MS3 17:53
PROVIDERS: Internal Medicine Critical Care Medicine; Admitting Provider Internal Medicine; Emergency Provider Emergency Medicine; PCP Internal Medicine; Visit Provider Internal Medicine
DX: J18.9 Pneumonia, unspecified organism (principal); R09.02 Hypoxemia; G47.33 Obstructive sleep apnea (adult) (pediatric); F41.9 Anxiety disorder, unspecified; F31.9 Bipolar disorder, unspecified; Z79.899 Other long term (current) drug therapy; E78.5 Hyperlipidemia, unspecified
CPT/HCPCS: 36415; 71045; 71046; 71275; 80048; 82785; 83605; 83880; 84484; 85025; 85379; 85652; 86038; 86140; 86200; 86225; 86235; 86256; 86431; 87040; 87633; 87635; 93005; 94640; 96361; 96365; 96366; 96375; 96376; 99218; 99285; J7030; J7050; Q9967; A4216; G0378; U0003

== ENCOUNTER → 2020-03-08 09:12 | Outpatient (CLI) | payer MEDICAID, SELFPAY ==
[2020-01-16 12:47] VITALS: BMI 29.0
[2020-03-08 10:35] LABS: Absolute Lymphocyte Count 0.93 X10^3/uL (0.83-4.51); Absolute Neutrophil Count 3.2 X10^3/uL (2.0-7.7); Basophil# 0.05 X10^3/uL; Eosinophil# 0.21 X10^3/uL; Eosinophils% 4.4 % (0-5); Hematocrit 45.9 % (40-54); Hemoglobin 14.9 g/dL (13.0-16.5); Lymphocyte # 0.93 X10^3/ul (4.0); Lymphocyte % 19.5 % (19-41); Mean Corp Hgb Conc 32.5 g/dL (32-36); Mean Corpuscular Hgb 30.5 pg (27.0-32.0); Mean Corpuscular Volume 94.1 fL (80-94); Mean Platelet Vol. 9.5 fl (6.2-12.0); Monocyte# 0.37 X10^3/uL; Monocyte% 7.7 % (0-10); NRBC Flagged by Analyzer 0 % (0-5); Neutrophil # 3.19 X10^3/uL (2.7-7.7); Neutrophil % 66.8 % (47-70); Platelet Count 210 K/mm3 (150-450); RBC Distribution Width CV 12.4 % (11.6-14.6); RBC Distribution Width SD 42.9 fl (35.1-43.9); Red Blood Count 4.88 M/mm3 (4.6-6.2); White Blood Count 4.8 K/mm3 (4.4-11.0)
[2020-03-11 12:08] LABS: Alternaria alternata <0.10 kU/L (Class 0); Bermuda Grass 0.76 kU/L (Class II); Bluegrass, Kentucky 3.48 kU/L (Class III); Cat Hair/Dander, Standard <0.10 kU/L (Class 0); D farinae Mite 2.27 kU/L (Class III); D pteronyssinus 2.23 kU/L (Class III); Dog Epithelia <0.10 kU/L (Class 0); Elm, American White 0.47 kU/L (Class I); Oak, White 0.43 kU/L (Class I); Plantain, English 0.47 kU/L (Class I); Ragweed, Short/Common 0.68 kU/L (Class II)
[2020-03-11 15:49] LABS: Mouse Urine <0.10 kU/L (Class 0)
[2020-03-12 03:07] LABS: Aspirgillus flavus Negative (Neg:<1:1); Aspirgillus fumigatus Negative (Neg:<1:1); Aspirgillus niger Negative (Neg:<1:1)
[2020-03-12 06:08] LABS: Immunoglobulin E 69 IU/mL (6-495)
== END ==
PROVIDERS: PCP Internal Medicine; Referring Provider Nurse Practitioner Acute Care; Visit Provider Nurse Practitioner Acute Care
DX: R06.02 Shortness of breath (principal)
CPT/HCPCS: 36415; 82785; 85025; 86003; 86606

== ENCOUNTER → 2020-04-01 11:52 | Outpatient (CLI) | payer MEDICAID, SELFPAY ==
[2020-03-09 09:47] VITALS: BMI 27.8
[2020-04-01 12:15] LABS: D-Dimer Quantitative (DVT/PE) 0.32 FEU/ug/m (0.27-0.49)
== END ==
PROVIDERS: PCP Internal Medicine; Referring Provider Nurse Practitioner Acute Care; Visit Provider Nurse Practitioner Acute Care
DX: R06.02 Shortness of breath (principal)
CPT/HCPCS: 36415; 85379

== ENCOUNTER → 2020-08-11 06:59 | Outpatient (CLI) | payer MEDICAID, SELFPAY ==
[2020-03-09 09:47] VITALS: BMI 27.8
[2020-08-11] MEDS: Methacholine Chloride 18 ml neb kit INHALATION (07:33)
--- NOTE | 2020-08-12 14:44 | BRONCHALL ---
Bronchoprovocation Challenge Bronchoprovocation Challenge Bronchoprovocation Challenge: BRONCHOPROVOCATION STUDY INTERPRETATION Brief HPI: Patient is a 40 year old male, currently under the care of Dr. Roger, who presents to [facility] for a bronchoprovocation study secondary to diagnosis of dyspnea on exertion. Respiratory therapist reports good effort and reproducible results. Interpretation: Initial spirometry showed no large airways obstructive ventilatory defect. The patient was then given increasingly concentrated doses of methacholine in a stepwise fashion, using a modified ATS protocol. The patient?s maximum reduction in FEV1 was 12 percent predicted. Impression: Negative Bronchoprovocation study. This is NOT consistent with the diagnosis of asthma.
== END ==
PROVIDERS: PCP Internal Medicine
DX: R06.09 Other forms of dyspnea (principal)
CPT/HCPCS: 94070; 95070

== ENCOUNTER → 2020-09-27 20:34 | Outpatient (CLI) | payer MEDICAID, SELFPAY ==
[2020-09-07 08:53] VITALS: BMI 27.8
== END ==
PROVIDERS: PCP Internal Medicine; Referring Provider Nurse Practitioner Acute Care; Visit Provider Nurse Practitioner Acute Care
DX: G47.33 Obstructive sleep apnea (adult) (pediatric) (principal)
CPT/HCPCS: 95811

== ENCOUNTER 2020-10-11 13:36 | Emergency (ER) | payer MEDICAID, SELFPAY ==
[2020-09-07 08:53] VITALS: BMI 27.8
[2020-10-11 13:37] VITALS: BP 130/82; PULSE 98; RESP 18; TEMP 36.4; O2SAT 84; BMI 27.1
[2020-10-11 14:24] VITALS: O2SAT 92
--- NOTE | 2020-10-11 14:35 | EKG12_ITS ---
Test Reason : SOB Blood Pressure : / mmHG Vent. Rate : 085 BPM Atrial Rate : 085 BPM P-R Int : 152 ms QRS Dur : 092 ms QT Int : 360 ms P-R-T Axes : 064 086 036 degrees QTc Int : 428 ms Normal sinus rhythm Normal ECG Confirmed by WU FONG, ALLISON ([id number]), editor map KEILY RICHTER ([id number]) on 10/13/2020 9:24:36 AM Referred By: BB Confirmed By:ALLISON WASHBURN MD
--- NOTE | 2020-10-11 14:37 | EX.ED.DYSGE1 ---
HPI History of Present Illness Chief Complaint: Shortness of Breath Informant: patient Narrative Narrative: Patient is a 40-year-old male with a past medical history of ROSE MARIE, anxiety who presents to the emergency department for hypoxia at home. Patient was diagnosed with Covid this previous January. He states that he was hospitalized for this. He was sent home with 3 L of supplemental oxygen to wear indefinitely. Is been following with pulmonology. He has had desaturations requiring steroid doses. Last time he was on this was in April. States he felt well for multiple weeks after this and does have bad days. Yesterday his oxygen was dropping into the 70s and 80s even sitting on a couch. He does feel short of breath. Denies any chest pain associated with this. He does have a mild cough starting yesterday that is nonproductive of sputum. He denies fevers, chills or body aches. No leg swelling or calf pain. He has had multiple CTs to check for blood clots and has been negative every time. He denies any leg swelling or calf pain. No nausea/vomiting or diarrhea. He states he did have some bright red blood in his stool recently but no black tarry stools. He does have hemorrhoids. He denies a smoking history. [facility] Medical History (Updated 10/11/20 @ 15:[address] Rafal Shelton, ) Anxiety Bipolar disorder Bloody ejaculation Daytime somnolence Depression Hx of appendicitis Hyperlipidemia Knee pain Vertigo Home Medications albuterol sulfate 90 mcg/actuation aerosol inhaler 1 - 2 puff INHALATION Q6H PRN #6.7 g 12/28/19 [Rx Last Taken Unknown] ascorbate calcium (vitamin C) 500 mg tablet 500 mg PO DAILY 09/07/20 [History Last Taken Unknown] fluoxetine 20 mg capsule 60 mg PO DAILY #270 cap 09/07/20 [Rx Last Taken Unknown] magnesium oxide 500 mg capsule 500 mg PO DAILY 09/07/20 [History Last Taken Unknown] vitamin B comp and C no.3 15 mg-10 mg-50 mg-5 mg-300 mg capsule 1 cap PO DAILY 09/07/20 [History Last Taken Unknown] zinc gluconate 50 mg tablet 50 mg PO DAILY 09/07/20 [History Last Taken Unknown] prednisone 10 mg PO DAILY #26 tablet 10/11/20 [Rx Last Taken Unknown] Allergy/AdvReac Type Severity Reaction Status Date / Time No Known Allergies Allergy Verified 10/11/20 13:37 Family History Mother Hypertension Hyperlipidemia Anxiety Father Diabetes ROSE MARIE (obstructive sleep apnea) Sister Hyperlipidemia Grandmother Heart disease Myocardial infarction o [place] at 50s. Grandfather Heart disease Myocardial infarction Had [place] in 70s, Surgical History History of appendectomy History of vasectomy Social History Smoking Status: Never smoker alcohol intake: current details: Rarely substance use type: does not use what type of physical activity do you participate in: weight training frequency: 1-2 times per week ROS ROS ED Constitutional Constitutional ED: Denies chills or fever(s) Eyes Eyes: Denies change in vision ENT ENT ED: Denies epistaxis or rhinorrhea Cardiovascular Cardiovascular: Denies chest pain or palpitations Respiratory/Chest Respiratory/Chest: Reports cough, dyspnea and dyspnea on exertion; Denies sputum Gastrointestinal Gastrointestinal: Denies abdominal pain, diarrhea, nausea or vomiting Musculoskeletal Musculoskeletal: Denies back pain or neck pain Integumentary Denies rash Neurologic Neurologic: Denies dizziness, headache(s) or weakness EXAM Physical Exam Const Vital Signs: 10/11/20 13:37 10/11/20 14:24 10/11/20 15:00 Temperature 97.6 F L Temperature Source Temporal Pulse Rate 98 74 Respiratory Rate 18 21 H Blood Pressure 130/82 H 146/81 H Blood Pressure Mean 98 102 Pulse Ox 84 92 93 Oxygen Delivery Method Room Air Nasal Cannula Nasal Cannula Oxygen Flow Rate (L/min) 3 3 10/11/20 15:41 Temperature Temperature Source Pulse Rate 76 Respiratory Rate 17 Blood Pressure Blood Pressure Mean Pulse Ox 93 Oxygen Delivery Method Oxygen Flow Rate (L/min) Positive well nourished and well developed General Appearance ED: well developed and NAD HEENT Reports normocephalic, head/scalp atraumatic and moist mucous membranes Eyes PERRL and EOMs intact bilaterally Neck supple Chest Wall inspection of chest normal Resp normal respiratory effort and clear to auscultation bilaterally Resp Narrative: On supplemental oxygen, speaking in full sentences. In no respiratory distress. Auscultation: Negative for rales, rhonchi or wheezes Cardio regular rate, regular rhythm and no murmurs GI normal to inspection, nondistended, normoactive bowel sounds and non-tender Palpation: soft; Negative for guarding or rebound tenderness present Back/Spine no CVA tenderness Extremity normal to inspection General Extremety ED: Negative for edema or tenderness General Extremity: Negative for edema Neuro no sensory deficits noted Sensorium / Orientation: alert Motor Exam: strength 5/5 throughout Psych mental status grossly normal Skin no rashes or lesions noted MDM MDM MDM Narrative Medical decision making narrative: Patient presents the ED for oxygen desaturations at home. He does monitor this after being diagnosed with Covid this past year. On arrival to the ED he is satting 84%. Patient is on a supplemental oxygen currently and satting in the low 90s. He is in no acute distress. Will check basic lab work, x-ray and EKG. Will attempt again touch with his continuous still operator for recommendation on potential steroid use. Patient placed back on his supplemental oxygen and he has been in the 90s. His chest x-ray did not reveal any acute cardiopulmonary abnormality. No significant electrolyte abnormality. His troponin is negative. His D-dimer is negative as well. He is not anemic. No high white blood cell count. I did speak with Dr. Roger, his continuous still operator. He recommended placing him on steroids and to call his office tomorrow for a appointment. Patient does feel comfortable being discharged home at this time. He is resting comfortably in no respiratory distress. Will discharge home in stable condition. Return precautions are reviewed. He understands and is agreeable this plan. Lab Data Labs: Laboratory Results - last 24 hr 10/11/20 10/11/20 10/11/20 14:10 14:10 14:10 WBC 6.0 RBC 4.92 Hgb 15.6 Hct 45.3 MCV 92.1 MCH 31.7 MCHC 34.4 RDW Std Deviation 41.9 RDW Coeff of Deepti 12.4 Plt Count 248 MPV 9.5 Immature Gran % (Auto) 0.300 Neut % (Auto) 69.0 Lymph % (Auto) 18.[address] % (Auto) 9.2 Eos % (Auto) 2.5 Baso % (Auto) 0.5 Absolute Neuts (auto) 4.1 Absolute Lymphs (auto) 1.11 Nucleated RBC % 0 D-Dimer Quant (PE/DVT) 0.38 Sodium 139 Potassium 3.9 Chloride 106 Carbon Dioxide 27.0 Anion Gap 6 BUN 16 Creatinine 1.24 Estim Creat Clear Calc 86.92 Est GFR (MDRD) Af Amer 83 Est GFR (MDRD) Non-Af 68 BUN/Creatinine Ratio 12.9 Glucose 108 H Calcium 8.7 Total Bilirubin 0.50 AST 27 ALT 47 Alkaline Phosphatase 130 H Troponin I High Sens < 3.0 L B-Natriuretic Peptide Total Protein 7.4 Albumin 3.4 Globulin 4.0 Albumin/Globulin Ratio 0.8 L 10/11/20 14:10 WBC RBC Hgb Hct MCV MCH MCHC RDW Std Deviation RDW Coeff of Deepti Plt Count MPV Immature Gran % (Auto) Neut % (Auto) Lymph % (Auto) [place] % (Auto) Eos % (Auto) Baso % (Auto) Absolute Neuts (auto) Absolute Lymphs (auto) Nucleated RBC % D-Dimer Quant (PE/DVT) Sodium Potassium Chloride Carbon Dioxide Anion Gap BUN Creatinine Estim Creat Clear Calc Est GFR (MDRD) Af Amer Est GFR (MDRD) Non-Af BUN/Creatinine Ratio Glucose Calcium Total Bilirubin AST ALT Alkaline Phosphatase Troponin I High Sens B-Natriuretic Peptide 6.0 Total Protein Albumin Globulin Albumin/Globulin Ratio Radiography Diagnostic Testing: Radiology Impression Chest X-Ray 10/11/20 14:55 IMPRESSION: Normal x-ray examination of the chest. Electronically Signed: Justo Brooks MD at 15:20 EDT , Service support , Single view portable x-ray interpreted by myself. Clear lung wall bilaterally. No effusion. Normal cardiac silhouette. Normal mediastinum. EKG Initial EKG: Attestation: I personally reviewed and interpreted this EKG as follows: (Rate of 85 bpm and normal sinus rhythm. Normal intervals. Normal axis. No significant ST elevations or depressions. No T wave abnormalities.) Discharge Plan Triage Chief Complaint: Shortness of Breath ED Provider: Rafal Shelton Dx/Rx/DC Orders Clinical Impression: Hypoxia, Dyspnea Instructions: ED Dyspnea Prescriptions: New prednisone 10 mg tablet 10 mg PO DAILY Qty: 26 RF: 0 No Action albuterol sulfate 90 mcg/actuation HFA aerosol inhaler 1 - 2 puff INHALATION Q6H PRN (Reason: shortness of breath or wheezing) Qty: 6.7 RF: 0 B Complex Plus Vitamin C [id number] mg capsule 1 cap PO DAILY RF: 0 ascorbate calcium (vitamin C) 500 mg tablet 500 mg PO DAILY RF: 0 zinc gluconate 50 mg tablet 50 mg PO DAILY RF: 0 magnesium oxide 500 mg capsule 500 mg PO DAILY RF: 0 fluoxetine 20 mg capsule 60 mg PO DAILY Qty: 270 RF: 3 Primary Care Provider: Dawson Mayo Referrals: Ar Roger DO [STAFF PHYSICIAN] - 2 Days Dawson Mayo MD [Primary Care Provider] - Disposition Disposition: Home, Self Care Discharge Date/Time: 10/11/20 15:42
[2020-10-11 14:44] LABS: Absolute Lymphocyte Count 1.11 X10^3/uL (0.83-4.51); Absolute Neutrophil Count 4.1 X10^3/uL (2.0-7.7); Basophil# 0.03 X10^3/uL; Basophil% 0.5 % (0-1); Eosinophil# 0.15 X10^3/uL; Eosinophils% 2.5 % (0-5); Hematocrit 45.3 % (40-54); Hemoglobin 15.6 g/dL (13.0-16.5); Lymphocyte # 1.11 X10^3/ul (0.83-4.51); Lymphocyte % 18.5 % (19-41); Mean Corp Hgb Conc 34.4 g/dL (32-36); Mean Corpuscular Hgb 31.7 pg (27.0-32.0); Mean Corpuscular Volume 92.1 fL (80-94); Mean Platelet Vol. 9.5 fl (6.2-12.0); Monocyte# 0.55 X10^3/uL; Monocyte% 9.2 % (0-10); NRBC Flagged by Analyzer 0 % (0-5); Neutrophil # 4.14 X10^3/uL (2.7-7.7); Platelet Count 248 K/mm3 (150-450); RBC Distribution Width CV 12.4 % (11.6-14.6); RBC Distribution Width SD 41.9 fl (35.1-43.9); Red Blood Count 4.92 M/mm3 (4.6-6.2)
--- NOTE | 2020-10-11 14:55 | RAD_ITS ---
STUDY: X-RAY CHEST REASON FOR EXAM: Male, 40 years old. Hypoxia, long hauler TECHNIQUE: PA and lateral views of the chest. COMPARISON: Comparison is made with prior study dated 01/11/2020. FINDINGS: EKG electrodes are seen. The lungs are clear and expanded. There is no demonstrated pleural abnormality. Normal size heart. Normal mediastinum and allegra. Normal visualized pulmonary arteries. Normal visualized aortic arch and descending thoracic aorta. Normal visualized thoracic spine. Normal visualized ribs, clavicles, and shoulders. There is no demonstrated abnormality of the visualized soft tissue structures of the upper abdomen. RAD/Chest 1 View (Portable) IMPRESSION: Normal x-ray examination of the chest. Electronically Signed: Justo Brooks MD at 15:20 EDT , Service support ,
[2020-10-11 14:58] LABS: D-Dimer Quantitative (DVT/PE) 0.38 FEU/ug/m (0.27-0.49)
[2020-10-11 15:00] VITALS: BP 146/81; PULSE 74; RESP 21; O2SAT 93
[2020-10-11 15:00] LABS: ALB/GLOB Ratio 0.8 RATIO (0.9-2.4); AST(SGOT) 27 U/L (15-37); Alanine Aminotransfer ALT/SGPT 47 U/L (16-61); Albumin, Serum 3.4 g/dL (3.2-5.0); Alkaline Phosphatase 130 U/L (45-117); Anion Gap 6 (5-15); BUN 16 mg/dL (7-18); BUN/Creat Ratio 12.9 RATIO (10-20); Calcium,Total 8.7 mg/dL (8.5-10.1); Chloride 106 mmol/L (98-107); Creatinine, Serum 1.24 mg/dL (0.70-1.30); EST Glomerular Filtration Rate 68 mL/min (>60); Est Glom Filt Rate - Afr Amer 83 mL/min (>60); Estimated Creatinine Clearance 86.92 ml/min; Glucose 108 mg/dL (74-106); Potassium 3.9 mmol/L (3.5-5.1); Protein, Total 7.4 g/dL (6.4-8.2); Sodium Level 139 mmol/L (136-145); Troponin-I HS < 3.0 pg/mL (3.0-78.5)
[2020-10-11] MEDS: predniSONE 20 MG Tablet 40 MG PO (15:36)
[2020-10-11 15:41] VITALS: PULSE 76; RESP 17; O2SAT 93
== END 2020-10-11 15:42 | disposition home or self-care (01) ==
PROVIDERS: Emergency Provider Emergency Medicine; PCP Internal Medicine
DX: R09.02 Hypoxemia (principal); F31.9 Bipolar disorder, unspecified; G47.33 Obstructive sleep apnea (adult) (pediatric); Z86.16 Personal history of COVID-19; Z99.81 Dependence on supplemental oxygen
CPT/HCPCS: 71045; 80053; 83880; 84484; 85025; 85379; 93005; 99285; A4216

== ENCOUNTER → 2020-12-09 06:18 | Outpatient (CLI) | payer MEDICAID, SELFPAY ==
--- NOTE | 2020-12-09 17:47 | STRESSREP_ITS ---
Stress Test Report Date: 12-09-2020 Procedure: Exercise tolerance test/imaging study Indications: Shortness of breath/dyspnea on exertion; COVID-19 Consent: Per the patient Procedure: The patient exercised on a Jon protocol for 2 minutes and 43 seconds not completing Stage I achieving a peak heart rate of 120 bpm (66% predicted maximal heart rate) with a peak blood pressure 140/78 mmHg and a peak MET capacity of 4 METs. The baseline ECG demonstrated sinus rhythm. The peak exercise ECG demonstrated no obvious ECG changes. There were no cardiac dysrhythmias pretest, during exercise, or recovery. The functional capacity was considered decreased. There was no complaint of chest discomfort during exercise or recovery. The examination was discontinued secondary to dyspnea/hypoxemia. Impression: 1. Technically inadequate (percent predicted maximal heart rate less than 85%) exercise tolerance test 2. Peak exercise ECG with no obvious ECG changes with a heart rate achieved 3. There were no cardiac dysrhythmias pretest, during exercise, or recovery 4. Resting O2 saturation: Room air: 92% //exercise O2 saturation: Room air: 71% (patient subsequently placed on 3 L O2 nasal cannula) 5. Pharmacologic (Regadenoson) evaluation pending Procedure: Pharmacologic stress nuclear imaging study Consent: Per the patient Procedure: The patient underwent pharmacologic (Regadenoson 0.4mg ) evaluation with a peak heart rate of 97 beats per minute (53%predicted maximal heart rate) and a peak blood pressure of 118/74 mmHg. The baseline ECG demonstrated sinus rhythm. The peak pharmacologic ECG demonstrated no obvious ECG changes. There were no cardiac dysrhythmias pretest, during pharmacologic infusion, or recovery. There was no complaint of chest discomfort during pharmacologic infusion or recovery. The examination was discontinued secondary to completion of protocol. Impression: 1. Pharmacologic (Regadenoson) evaluation 2. Peak pharmacologic ECG with no obvious ECG change. 3. There were no cardiac dysrhythmias pretest, during pharmacologic infusion, or recovery. 4. Nuclear images pending Myocardial perfusion imaging study: Technique: The patient was injected with 11.5 millicuries of technetium 99m Cardiolite and subsequently rest SPECT Cardiolite nuclear imaging was obtained in the horizontal long, vertical long, and short axis views. The patient exercised on a Jon protocol for 2 minutes and 43 seconds not completing Stage I achieving a peak heart rate of 120 bpm (66% predicted maximal heart rate) with a peak blood pressure 140/78 mmHg and a peak MET capacity of 4 METs. The patient underwent pharmacologic (Regadenoson) evaluation with a peak heart rate of 97 beats per minute (53% percent predicted maximal heart rate) and a peak blood pressure of 118/74 mmHg. The patient was injected with 32.6 millicuries of technetium 99m Cardiolite and subsequently stress SPECT Cardiolite nuclear imaging was obtained in the horizontal long, vertical long, and short axis views. A gated Cardiolite study at peak stress was obtained. Interpretation: Rest and stress SPECT Cardiolite nuclear imaging status post realignment, normalization, and attenuation correction demonstrate relative uniform tracer uptake and myocardial perfusion appearing within normal limits. There is end systolic thickening and brightening. The gated Cardiolite study demonstrates myocardial thickening and inward wall motion. The reported LVEF is 56%. Impression: 1. Rest and stress SPECT Cardiolite nuclear imaging demonstrate relative uniform tracer uptake and myocardial perfusion appearing within normal limits. 2. The gated Cardiolite study reports an LVEF of 56%. This note was generated with Zooplaation software. It may contain incorrect words, spelling, and punctuation that were not noted in checking the note before signing.
== END ==
PROVIDERS: PCP Internal Medicine; Referring Provider Nurse Practitioner Family; Visit Provider Nurse Practitioner Family
DX: R06.09 Other forms of dyspnea (principal)
CPT/HCPCS: 78452; 93017; A9500; A4216; J2785

== ENCOUNTER → 2021-12-30 | Outpatient (CLI) | payer OTHER, MEDICAID, SELFPAY ==
[2021-12-30 12:06] LABS: Absolute Lymphocyte Count 0.82 X10^3/uL (0.83-4.51); Absolute Neutrophil Count 8.4 X10^3/uL (2.0-7.7); Basophil# 0.03 X10^3/uL; Basophil% 0.3 % (0-1); Eosinophil# 0.05 X10^3/uL; Eosinophils% 0.5 % (0-5); Hematocrit 45.5 % (40-54); Hemoglobin 15.2 g/dL (13.0-16.5); Lymphocyte # 0.82 X10^3/ul (0.83-4.51); Lymphocyte % 8.3 % (19-41); Mean Corp Hgb Conc 33.4 g/dL (32-36); Mean Corpuscular Hgb 32.1 pg (27.0-32.0); Mean Platelet Vol. 9.9 fl (6.2-12.0); Monocyte# 0.51 X10^3/uL; Monocyte% 5.1 % (0-10); NRBC Flagged by Analyzer 0 % (0-5); Neutrophil % 84.8 % (47-70); Platelet Count 206 K/mm3 (150-450); RBC Distribution Width CV 12.5 % (11.6-14.6); RBC Distribution Width SD 44.8 fl (35.1-43.9); Red Blood Count 4.74 M/mm3 (4.6-6.2); White Blood Count 9.9 K/mm3 (4.4-11.0)
[2021-12-30 12:36] LABS: ALB/GLOB Ratio 0.9 RATIO (0.9-2.4); AST(SGOT) 12 U/L (15-37); Alanine Aminotransfer ALT/SGPT 52 U/L (16-61); Albumin, Serum 3.5 g/dL (3.2-5.0); Alkaline Phosphatase 65 U/L (45-117); Anion Gap 6 (5-15); BUN 19 mg/dL (7-18); Calcium,Total 8.9 mg/dL (8.5-10.1); Chloride 105 mmol/L (98-107); Cholesterol 259 mg/dL (200); Creatinine, Serum 1.12 mg/dL (0.70-1.30); EST Glomerular Filtration Rate 77 mL/min (>60); Est Glom Filt Rate - Afr Amer 93 mL/min (>60); Globulin 3.7 g/dL (2.2-4.2); Glucose 98 mg/dL (74-106); High Density Lipoprotein 46 mg/dL; Potassium 3.9 mmol/L (3.5-5.1); Protein, Total 7.2 g/dL (6.4-8.2); Sodium Level 139 mmol/L (136-145); Thyroid Stim Hormone (TSH) 1.71 uIU/mL (0.358-3.74); Triglycerides 203 mg/dL; Very Low Density Lipoprotein 41 mg/dL (5-40)
== END | disposition home or self-care (01) ==
LOC: BIMLAB 08:46
PROVIDERS: PCP Internal Medicine; Referring Provider Nurse Practitioner Family; Visit Provider Nurse Practitioner Family
DX: Z00.00 Encounter for general adult medical examination without abnormal findings (principal); F31.9 Bipolar disorder, unspecified; G47.33 Obstructive sleep apnea (adult) (pediatric)
CPT/HCPCS: 36415; 80053; 80061; 84443; 85025

== ENCOUNTER 2024-04-30 07:56 | Emergency (ER) | payer MEDICAID, SELFPAY ==
[2024-04-30] VITALS (10 sets, daily range): BP systolic 111–138; BP diastolic 64–87; PULSE 91–108; RESP 16–22; TEMP 36.8–36.9; O2SAT 88–94; BMI 25.7
--- NOTE | 2024-04-30 08:17 | RAD_ITS ---
PROCEDURE: CHEST PA AND LATERAL REASON FOR EXAM: Cough, bilateral rales, and tachypnea. TECHNIQUE: Frontal and lateral views of the chest. COMPARISON: None. FINDINGS: The heart size is normal. The mediastinal contour is unremarkable. The lungs are clear. The bones are unremarkable. RAD/Chest PA and Lateral IMPRESSION: No evidence of acute cardiopulmonary disease. Negative examination. Reading Location: [id number]
[2024-04-30] MEDS: Albuterol 2.5 MG/3 ML VIAL.NEB. INHALATION ×3 (08:42→08:49)
[2024-04-30] MEDS: Ipratropium/Albuterol Sulfate 3 ML AMPUL.NEB INHALATION (08:42)
[2024-04-30 08:43] LABS: Absolute Lymphocyte Count 0.62 X10^3/uL (0.83-4.51); Basophil# 0.04 X10^3/uL; Basophil% 0.7 % (0-1); Eosinophil# 0.06 X10^3/uL; Eosinophils% 1.1 % (0-5); Hematocrit 43.7 % (40-54); Hemoglobin 15.3 g/dL (13.0-16.5); Lymphocyte # 0.62 X10^3/ul (0.83-4.51); Lymphocyte % 11.3 % (19-41); Mean Corpuscular Hgb 32.3 pg (27.0-32.0); Mean Corpuscular Volume 92.2 fL (80-94); Mean Platelet Vol. 9.6 fl (6.2-12.0); Monocyte# 0.71 X10^3/uL; Monocyte% 12.9 % (0-10); NRBC Flagged by Analyzer 0 % (0-5); Neutrophil # 4.04 X10^3/uL (2.7-7.7); Neutrophil % 73.6 % (47-70); Platelet Count 190 K/mm3 (150-450); RBC Distribution Width CV 12.2 % (11.6-14.6); RBC Distribution Width SD 41.6 fl (35.1-43.9); Red Blood Count 4.74 M/mm3 (4.6-6.2); White Blood Count 5.5 K/mm3 (4.4-11.0)
[2024-04-30 08:56] LABS: Anion Gap 9 (5-15); BUN 17 mg/dL (7-18); BUN/Creat Ratio 14.7 RATIO (10-20); Calcium,Total 8.7 mg/dL (8.5-10.1); Chloride 107 mmol/L (98-107); Creatinine, Serum 1.16 mg/dL (0.70-1.30); EST Glomerular Filtration Rate 73 mL/min (>60); Est Glom Filt Rate - Afr Amer 88 mL/min (>60); Glucose 99 mg/dL (74-106); Potassium 3.5 mmol/L (3.5-5.1); Sodium Level 139 mmol/L (136-145)
--- NOTE | 2024-04-30 09:26 | EDS_ITS ---
HPI History of Present Illness Chief Complaint: Cold Sx Detail of Chief Complaint: Flulike symptoms that started Sunday. Informant: patient Onset/Context/Timing Onset: Days (Onset of illness April 27) Context: sudden Timing: Continuous and Waxes and wanes Quality: Positive for Dyspnea on exertion and Wheezing; Negative for Orthopnea or PND Current Severity: Mild Maximum Severity: Moderate Worsened by: Exertion and Coughing Relieved by: Nothing Associated Symptoms cough, rhinorrhea, fever, sore throat, subjective, chills and sweats; Negative for post nasal drip or ear pain Chest Pain: Positive for None Narrative Narrative: Patient is a 44-year-old male. He is seen by Naveen Herring at the [facility]. He is seen by pulmonology and cardiothoracic surgeon at [facility]. He is scheduled for a lung biopsy. His pulse ox can vary between 88 to 94% at rest. He does have oxygen at home. He has multiple inhalers at home. He has not been on prednisone in the last week. He has been on prednisone in the last several months. He was concerned because his pulse ox went below 85%. He has been around others that are ill. He reports mild headache. Eyes double vision blurred vision loss of vision. He denies don ears decreased hearing. There is slight change in his voice. He denies chest discomfort of any type. He denies pleuritic pain. He denies history of VTE. Denies leg pain, swelling discoloration. He has had issues with hypoxia since 2019. He was diagnosed with COVID at that time per prior records. He was admitted to [facility] at that time. Patient denies GI symptoms. Patient does endorse myalgias. PE Risk Factors: Negative for Cancer, OCP + Smoking + > 35, Prior DVT or PE, Recent immobilization, Recent surgery or Recent travel Prior similar symptoms: Yes Recent Illness/Hospitalization: No PFSH PFSH Medical History Encounter for preventative adult health care examination Dyspnea on exertion Knee pain Daytime somnolence Bipolar disorder Vertigo Bloody ejaculation Depression Anxiety Hyperlipidemia Hx of appendicitis Home Medications ?Medication ?Instructions ?Recorded ?Last Taken ?Type albuterol sulfate 90 mcg/actuation 1 - 2 puff inhalation Q6H PRN 12/28/19 04/16/24 Rx aerosol inhaler shortness of breath or wheezing #6.7 grams ascorbate calcium (vitamin C) 500 500 mg PO DAILY 09/07/20 04/29/24 History mg tablet magnesium oxide 500 mg capsule 500 mg PO DAILY 09/07/20 04/29/24 History vitamin B comp and C no.3 15 mg-10 1 cap PO DAILY 09/07/20 Unknown History mg-50 mg-5 mg-300 mg capsule (B Complex Plus Vitamin C) zinc gluconate 50 mg tablet 50 mg PO DAILY 09/07/20 Unknown History albuterol sulfate 2.5 mg/3 mL 2.5 mg (3 mL) continuous 10/20/20 Unknown Clinic (0.083 %) solution for nebulization nebulization ONCE #1 mL albuterol sulfate 2.5 mg/3 mL 2.5 mg (3 mL) inhalation Q4H PRN 10/20/20 Unknown Rx (0.083 %) solution for nebulization Sob &/Or Wheezing #180 mL cholecalciferol (vitamin D3) 25 25 mcg PO DAILY 12/30/21 04/29/24 History mcg (1,000 unit) capsule fluoxetine 20 mg capsule 60 mg (3 x 20 mg) PO DAILY #270 12/30/21 04/29/24 Rx caps levocetirizine 5 mg tablet (Xyzal) 5 mg PO QPM PRN allergy symptoms 12/30/21 Unknown Rx #90 tabs montelukast 10 mg tablet 10 mg PO QPM #90 tabs 12/30/21 Unknown Rx prednisone 20 mg tablet 60 mg (3 x 20 mg) PO DAILY #15 04/30/24 Unknown Rx TABLETS Allergy/AdvReac Type Severity Reaction Status Date / Time No Known Allergies Allergy Verified 04/30/24 08:17 Family History Mother Hypertension Hyperlipidemia Anxiety Father Diabetes ROSE MARIE (obstructive sleep apnea) Sister Hyperlipidemia Grandmother Heart disease Myocardial infarction o [place] at 50s. Grandfather Heart disease Myocardial infarction Had [place] in 70s, Surgical History History of appendectomy History of vasectomy Social History Smoking Status: Never smoker alcohol intake: current details: Rarely substance use type: does not use what type of physical activity do you participate in: weight training frequency: 1-2 times per week ROS ROS ED Constitutional Constitutional ED: Reports chills and fever(s); Denies sweats or weight loss Eyes Eyes: Denies blurry vision or change in vision ENT ENT ED: Reports rhinorrhea; Denies ear pain Cardiovascular Cardiovascular: Denies chest pain, orthopnea, palpitations, paroxysmal nocturnal dyspnea or racing heartbeat Respiratory/Chest Respiratory/Chest: Reports cough, dyspnea and dyspnea on exertion; Denies orthopnea, paroxysmal nocturnal dyspnea or sputum Gastrointestinal Gastrointestinal: Denies abdominal pain, diarrhea, nausea or vomiting Musculoskeletal Musculoskeletal: Reports myalgias; Denies arthralgias, back pain or neck pain Integumentary Reports rash Neurologic Neurologic: Denies paresthesias Psychiatric Psychiatric: Denies anxiety or depression Hematologic/Lymphatic Hematologic/Lymphatic: Denies easy bleeding or easy bruising EXAM Physical Exam Const Vital Signs: 04/30/24 07:57 04/30/24 07:59 04/30/24 08:12 Temperature 98.4 F 98.4 F Temperature Source Temporal Oral Pulse Rate 102 H 102 H Respiratory Rate 22 H 22 H Respiratory Effort Short of Breath Respiratory Pattern Blood Pressure 111/64 111/64 Blood Pressure Mean 79 79 Pulse Ox 91 91 Oxygen Delivery Method Room Air Room Air Oxygen Flow Rate (L/min) 04/30/24 08:27 04/30/24 08:29 04/30/24 08:49 Temperature Temperature Source Pulse Rate 97 Respiratory Rate 16 Respiratory Effort Respiratory Pattern Normal Blood Pressure Blood Pressure Mean Pulse Ox 88 94 Oxygen Delivery Method Room Air Nasal Cannula Oxygen Flow Rate (L/min) 2 04/30/24 08:59 04/30/24 09:00 04/30/24 09:09 Temperature 98.3 F 98.4 F Temperature Source Oral Oral Pulse Rate 108 H 91 96 Respiratory Rate 18 21 H 16 Respiratory Effort Respiratory Pattern Normal Blood Pressure 138/82 H 122/87 H Blood Pressure Mean 100 98 Pulse Ox 92 93 Oxygen Delivery Method Room Air Room Air Oxygen Flow Rate (L/min) Vital signs noted. Patient initially was tachypneic tachycardic. He was not hypoxic. Did have episode where his sat went 88%. Nurse put him on oxygen. This is not abnormal for him. Positive well nourished and well developed General Appearance ED: well developed and NAD; Negative for pallor HEENT Reports moist mucous membranes HEENT Narrative: Head is atraumatic no cephalic. Ears normal. Nares patent with slight drainage. Posterior pharynx is normal. Eyes PERRL and EOMs intact bilaterally General Eye ED: Negative for pale conjunctiva or scleral icterus Neck no lymphadenopathy, supple, no meningeal signs and no JVD Neck Narrative: Trachea is midline. Resp normal respiratory effort and No clear to auscultation bilaterally Auscultation: rales bilateral base and rhonchi throughout (Scattered predominantly lower lobes.) Cardio regular rhythm, S1 normal heart sound, S2 normal heart sound and no murmurs Rate: tachycardic GI non-tender, non-distended and no masses Auscultation: hypoactive bowel sounds Palpation: soft Extremity normal to inspection Extremity Narrative: There is no asymmetry, swelling, discoloration, leg vein distention, palpable cords or tenderness along the distribution of the deep venous system. General Extremety ED: Negative for edema or tenderness General Extremity: Negative for edema Neuro oriented x3, CN's II-XII intact bilaterally and no sensory deficits noted Suzan Coma Scale: document GCS findings Spontaneous Obeys Commands Oriented 15 Sensorium / Orientation: alert Psych mental status grossly normal Skin no wounds and skin turgor normal General Skin Exam: Negative for jaundice or pallor MDM MDM MDM Narrative Medical decision making narrative: Differential diagnosis is upper EXTR infection with cough congestion and exacerbation of chronic hypoxemic respiratory failure, pneumonia, exacerbation of asthma. Since this is patient's second visit within 24 hours. Will obtain chest x-ray and blood work in the event that he does have pneumonia to risk ratified him per the port score and curb 65 score. Prior records were reviewed. History & Record Review Additional record(s) reviewed:: Prior inpatient record (Hospitalization [facility] 2019), Prior outpatient record (Records from [facility] and [facility] Prior ED visit and Prior labs Lab Data Attestation: I reviewed the patient's lab results. Lab results narrative: CBC is unremarkable. There is slight increase in neutrophils. Basic metabolic panel is normal. Labs: Laboratory Results - last 24 hr 04/30/24 08:29 WBC 5.5 RBC 4.74 Hgb 15.3 Hct 43.7 MCV 92.2 MCH 32.3 H MCHC 35.0 RDW Std Deviation 41.6 RDW Coeff of Deepti 12.2 Plt Count 190 MPV 9.6 Immature Gran % (Auto) 0.400 Neut % (Auto) 73.6 H Lymph % (Auto) 11.3 L Isabella % (Auto) 12.9 H Eos % (Auto) 1.1 Baso % (Auto) 0.7 Absolute Neuts (auto) 4.0 Absolute Lymphs (auto) 0.62 L Nucleated RBC % 0 Sodium 139 Potassium 3.5 Chloride 107 Carbon Dioxide 23.0 Anion Gap 9 BUN 17 Creatinine 1.16 Estim Creat Clear Calc 89.20 Est GFR (MDRD) Af Amer 88 Est GFR (MDRD) Non-Af 73 BUN/Creatinine Ratio 14.7 Glucose 99 Calcium 8.7 Rapid antigen was positive for influenza A and negative for COVID and RSV. Radiography Chest X-Ray - ED: 2 View, Read by ED Physician, Normal, Heart, Lungs, Mediastinum, Bony Structures and No Acute Disease (Interpreted by me at 0924.) Diagnostic Testing: Clinical Impression(s) from Imaging Studies Chest X-Ray 04/30/24 08:17 IMPRESSION: No evidence of acute cardiopulmonary disease. Negative examination. Reading Location: [address] Treatment and Re-Evaluation :: Patient was informed of his results. Patient is outside the window for Tamiflu. Plan is burst of prednisone. Patient has oxygen at home. Patient has inhalers at home. He will contact his brother as well as assistant athletic trainer at [facility]. 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, Tachypnea Instructions: ED Influenza (Adult) Prescriptions: New prednisone 20 mg tablet 60 mg PO DAILY Qty: 15 0RF No Action albuterol sulfate 90 mcg/actuation HFA aerosol inhaler 1 - 2 puff INHALATION Q6H PRN (Reason: shortness of breath or wheezing) Qty: 6.7 0RF B Complex Plus Vitamin C [id number] mg capsule 1 cap PO DAILY Rx Instructions: give with food (meal/snack) ascorbate calcium (vitamin C) 500 mg tablet 500 mg PO DAILY zinc gluconate 50 mg tablet 50 mg PO DAILY magnesium oxide 500 mg capsule 500 mg PO DAILY albuterol sulfate 2.5 mg /3 mL (0.083 %) solution for nebulization 2.5 mg continuous nebulization ONCE Qty: 1 0RF albuterol sulfate 2.5 mg /3 mL (0.083 %) solution for nebulization 2.5 mg inhalation Q4H PRN (Reason: Sob &/Or Wheezing) Qty: 180 3RF cholecalciferol (vitamin D3) 25 mcg (1,000 unit) capsule 25 mcg PO DAILY fluoxetine 20 mg capsule 60 mg PO DAILY Qty: 270 3RF levocetirizine [Xyzal] 5 mg tablet 5 mg PO QPM PRN (Reason: allergy symptoms) Qty: 90 2RF montelukast 10 mg tablet 10 mg PO QPM Qty: 90 3RF Primary Care Provider: Naveen Herring Referrals: Naveen Herring, [employer] [Primary Care Provider] - 1 Week if not improving Print Language: Sinhala Disposition Disposition: Home, Self Care
== END 2024-04-30 10:37 | disposition home or self-care (01) ==
PROVIDERS: Emergency Provider Emergency Medicine; PCP Nurse Practitioner Family; Visit Provider Emergency Medicine
DX: J10.1 Influenza due to other identified influenza virus with other respiratory manifestations (principal); J96.11 Chronic respiratory failure with hypoxia; R00.0 Tachycardia, unspecified; E78.5 Hyperlipidemia, unspecified; E66.3 Overweight; J98.01 Acute bronchospasm; Z68.25 Body mass index [BMI] 25.0-25.9, adult; F41.9 Anxiety disorder, unspecified; F32.A Depression, unspecified; Z79.899 Other long term (current) drug therapy; Z90.49 Acquired absence of other specified parts of digestive tract; Z98.52 Vasectomy status
CPT/HCPCS: 71046; 80048; 85025; 87631; 94640; 99284; A4216